=== PATIENT | male | born 1955 | race African-American/Black ===

== ENCOUNTER 2024-04-23 14:51 | Outpatient (OUT) | payer MEDICARE, SELFPAY ==
[2024-04-23 15:22] LABS: Hematocrit 41.7 % (42.0-54.0); Hemoglobin 13.5 g/dL (14.0-18.0); Mean Corpuscular HGB Conc 32.4 g/dL (29.9-35.2); Mean Corpuscular Hemoglobin 28.1 pg (25.9-34.0); Mean Corpuscular Volume 86.9 fL (80.0-94.0); Mean Platelet Volume 9.4 fL (9.5-13.5); Platelet Count 226 10^3/uL (150-450); Red Cell Distribution Width 14.5 % (11.0-15.0); White Blood Count 3.8 10^3/uL (4.0-11.0)
[2024-04-23 15:26] LABS: Creatinine Urine Random 147.02 mg/dL (20.00-300.00); Protein Creatinine Ratio Urine 0.29; Total Protein Urine Random 42.6 mg/dL (<=11.9)
[2024-04-23 15:31] LABS: Bilirubin Urine NEGATIVE (NEGATIVE); Blood Urine NEGATIVE (NEGATIVE); Clarity Urine CLEAR (CLEAR); Color Urine YELLOW (YELLOW); Glucose Urine UA NEGATIVE (NEGATIVE); Ketones Urine NEGATIVE (NEGATIVE); Leukocyte Esterase Urine NEGATIVE (NEGATIVE); Nitrite Urine NEGATIVE (NEGATIVE); Protein Urine 30 mg/dL (NEG/TRACE); Urobilinogen Urine 0.2 EU/dL (0.2-1.0)
[2024-04-23 15:45] LABS: RBC Urine NONE SEEN #/HPF (0-2); WBC Urine NONE SEEN #/HPF (NONE SEEN)
[2024-04-23 15:46] LABS: Bacteria Urine TRACE #/HPF (NONE SEEN); Cast Seen? SEEN #/LPF (NONE SEEN); Crystals Seen? None Seen #/HPF (None Seen); Hyaline Casts Urine RARE; Mucus Urine NONE SEEN (NONE SEEN); Squamous Epithelial Cell Urine FEW #/LPF (NONE/RARE); Urine Culture Indicated NO
[2024-04-23 16:11] LABS: Anion Gap 7.8; BUN Creatinine Ratio 11.6; Calcium 8.5 mg/dL (8.5-10.1); Carbon Dioxide 29.8 mmol/L (21.0-32.0); Chloride 104 mmol/L (98-107); Estimated GFR (African America 37 (>=60); Estimated GFR (Non-African Ame 31 (>=60); Glucose 98 mg/dL (74-106); Magnesium 1.7 mg/dL (1.8-2.4); Phosphorus 3.4 mg/dL (2.6-4.7); Potassium 4.6 mmol/L (3.5-5.1); Sodium 137 mmol/L (136-145); Uric Acid 8.5 mg/dL (3.5-7.2)
[2024-04-24 10:13] LABS: PTH, Intact 136 pg/mL (15-65)
== END 2024-04-23 14:52 | disposition home or self-care (01) ==
LOC: LAB 14:57
PROVIDERS: Family Provider Family Medicine; Visit Provider Internal Medicine
DX: N18.9 Chronic kidney disease, unspecified (principal); D63.1 Anemia in chronic kidney disease; E79.0 Hyperuricemia without signs of inflammatory arthritis and tophaceous disease; N18.30 Chronic kidney disease, stage 3 unspecified; N40.0 Benign prostatic hyperplasia without lower urinary tract symptoms; E78.5 Hyperlipidemia, unspecified
CPT/HCPCS: 36415; 80069; 81001; 82306; 82570; 83735; 83970; 84156; 84550; 85027

== ENCOUNTER 2024-04-25 07:45 | Outpatient (RCR) | payer MEDICARE, SELFPAY ==
[2024-04-25 11:35] LABS: Lactate Dehydrogenase 249 U/L (85-227)
[2024-04-26 15:10] LABS: Albumin 3.5 g/dL (2.9-4.4); Alpha-1-Globulin 0.2 g/dL (0.0-0.4); Alpha-2-Globulin 0.5 g/dL (0.4-1.0); Free Kappa Lt Chains,S 101.2 mg/L (3.3-19.4); Free Lambda Lt Chains,S 22.8 mg/L (5.7-26.3); Gamma Globulin 1.8 g/dL (0.4-1.8); Immunoglobulin A, Qn, Serum 552 mg/dL (61-437); Immunoglobulin G, Qn, Serum 1899 mg/dL (603-1613); Immunoglobulin M, Qn, Serum 31 mg/dL (20-172); Kappa/Lambda Ratio,S 4.44 (0.26-1.65); Protein, Total 7.2 g/dL (6.0-8.5)
[2024-05-01 12:10] LABS: Immunoglobulin E, Total 820 IU/mL (6-495)
== END 2024-05-13 23:59 | disposition home or self-care (01) ==
LOC: HEMC 07:45
PROVIDERS: Family Provider Family Medicine; Visit Provider Internal Medicine Hematology & Oncology
DX: D47.2 Monoclonal gammopathy (principal); R76.8 Other specified abnormal immunological findings in serum; D63.1 Anemia in chronic kidney disease; D50.9 Iron deficiency anemia, unspecified
CPT/HCPCS: 36415; 82784; 82785; 83521; 83615; 84155; 84165

== ENCOUNTER 2024-05-17 08:48 | Outpatient (OUT) | payer MEDICARE, SELFPAY ==
--- NOTE | 2024-05-17 09:01 | XR_ITS ---
[address] [address] Patient Name: HUMERA BUSTILLOS MRN: [id number] date: 1955 Sex: M Assigned Patient Location: [facility] Current Patient Location: Accession/Order Number: [id number] Exam Date: 05/17/2024 09:05 Report Date: 05/19/2024 06:41 At the request of: JESUS PURI Procedure: XR bone survey EXAMINATION: XR bone survey HISTORY: Monoclonal Gammopathy COMPARISON: No relevant comparison available. TECHNIQUE: Two lateral projections of the skull. A lateral projection of the C-spine, T-spine and L-spine. Single view of the chest and pelvis. Single view of each humerus, forearm, femur, and tibia-fibula. FINDINGS: SKULL: No lytic lesion, periosteal reaction/thickening, fracture, or dislocation. C-SPINE: No lytic lesion, periosteal reaction/thickening, fracture, or dislocation. T-SPINE: No lytic lesion, periosteal reaction/thickening, fracture, or dislocation. L-SPINE: No lytic lesion, periosteal reaction/thickening, fracture, or dislocation. CHEST: No expansile lesion, lytic lesion, or fracture. PELVIS: No lytic lesion, periosteal reaction/thickening, fracture, or dislocation. R HUMERUS: No lytic lesion, periosteal reaction/thickening, fracture, or dislocation. R FOREARM: No lytic lesion, periosteal reaction/thickening, fracture, or dislocation. L HUMERUS: No lytic lesion, periosteal reaction/thickening, fracture, or dislocation. L FOREARM: No lytic lesion, periosteal reaction/thickening, fracture, or dislocation. R FEMUR: No lytic lesion, periosteal reaction/thickening, fracture, or dislocation. R TIB/FIB: No lytic lesion, periosteal reaction/thickening, fracture, or dislocation. L FEMUR: No lytic lesion, periosteal reaction/thickening, fracture, or dislocation. L TIB/FIB: No lytic lesion, periosteal reaction/thickening, fracture, or dislocation. SOFT TISSUES: No swelling, nodules, visible mass, or radiopaque foreign body. XR/XR bone survey IMPRESSION: 1. No appreciable bone lesions. 2. Moderate-marked degenerative changes of the shoulders and hip joints bilaterally. 3. Multifocal mild degenerative joint disease. 4. Minimal degenerative changes of the thoracic and lumbar spine. Electronically authenticated by: SAUL CARMONA Date: 05/19/2024 06:41
--- OUTSIDE RECORDS SUMMARY | 2024-05-17 09:08 | XMS_ITS | CCD ---
Author Organization [facility] Care Team Providers Care 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 Name Role Phone BÁRBARA Yanez-C Mayra Primary Care Provider MD Roseann Ceja Attending Provider Delfina, Roseann Unavailable Delfina, Roseann Attending Unavailable Delfina, Roseann Admitting Unavailable Mayra Yanez Primary Care Unavailable Leonela Carvalho MD Primary Care Provider Mayra Yanez NP Unavailable Felicitas MIX, Fiordaliza Shahid Unavailable Leonela Carvalho MD Primary Care Provider JEISON FALK Attending Unavailable LEONELA CARVALHO Referring Unavailable LEONELA CARVALHO Primary Care Unavailable DELFINA, ROSEANN Referring Unavailable LEONELA CARVALHO Primary Care Unavailable LEONELA CARVALHO Primary Care Unavailable IGGY PATELIN Attending Unavailable SAE MILLIGAN Consulting Unavailable SHERYL, MUHAMFAM M Admitting Unavailable CONSUELO, EHAD Consulting Unavailable INPATIENT, TELENEUROLOGY Consulting Unavail able IGGY PATELIN Attending Unavailable IGGY PATELIN Referring Unavailable LEONELA CARVALHO Primary Care Unavailable POLLOCK, HARSHA Attending Unavailable JORGE, HARSHA Referring Unavailable LEONELA CARVALHO Primary Care Unavailable DELFINA, ROSEANN Referring Unavailable LEONELA CARVALHO Primary Care Unavailable MAYRA YANEZ Attending Unavailab MAYRA Quintanilla Attending Unavailab CLAUDINE Delgado Attending Unavailab le Allergies Allergy Classification Reported Allergen(s) Allergy Type Date of Onset Reaction(s) Facility (5 sources) hydroCHLOROthiazide; Translations: [HYDROCHLOROTHIAZIDE] Drug Allergy 08-24-19 21 hypokalemia [facility] (1 source) hydroCHLOROthiazide Drug Allergy 09-04-19 24 [facility] (1 source) hydroCHLOROthiazide Drug Allergy 08-24-19 21 Unknown [facility] Medications Current Medications Medication Drug Class(es) Dates Sig (Normalized) Sig (Original) [id number] actuat albuterol 0.09 mg/actuat metered dose inhaler (5 sources) beta2-Adrenergic Agonist Start: 05-01-2023 take 2 puff(s) by inhalation every four hours for wheezing albuterol HFA 90 mcg/act inhaler Indications: COVID-19 Inhale 2 puffs every 4 (four) hours if needed for wheezing. 18 g 1 05/01/2023 Active Start: 09-30-2019 take 2 puff(s) by in halation every four hours as needed for wheezing albuterol (PROVENTIL HFA;VENTOLIN HFA) 90 mcg/actuation inhaler Inhale 2 puffs every 4 (four) hours as needed for wheezing. 1 Inhaler 0 09/30/2019 Active take 2 puff(s) by in halation every four hours as needed Albuterol Sulfate HFA 108 (90 Base) MCG/ACT 2 puff as needed Inhalation every 4 hrs Active amLODIPine 10 mg oral tablet (1 source) Dihydropyridine Calcium Channel Sirisha take 1 tablet by mouth once daily amLODIPine (Norvasc) 10 MG tablet TAKE 1 TABLET BY MOUTH EVERY DAY for 90 days 0 Active apixaban 5 mg oral tablet (5 sources) Factor Xa Inhibitor Start: 023 take 1 tablet by mouth in the morning, then take 1 tablet by mouth at bedtime apixaban (ELIQUIS) 5 mg tablet Take 1 tablet (5 mg total) by mouth in the morning and 1 tablet (5 mg total) before bedtime. 180 tablet 3 01/03/2023 Active atorvastatin 10 mg oral tablet (1 source) HMG-CoA Reductase Inhibitor Start: 023 take 1 tablet by mouth in the morning atorvastatin (Lipitor) 10 MG tablet Indications: Mixed hyperlipidemia (CMS/HCC) Take 1 tablet (10 mg) by mouth in the morning. 90 tablet 1 08/03/2023 Active carvedilol 25 mg oral tablet (5 sources) alpha-Adrenergic Sirisha, beta-Adrenergic Sirisha Start: 023 take 2 tablets by mouth in the morning, then take 2 tablets by mouth at bedtime carvediloL (COREG) 25 mg tablet Indications: Essential hypertension Take 2 tablets (50 mg total) by mouth in the morning and 2 tablets (50 mg total) before bedtime. 360 tablet 3 07/25/2023 Active take 1 tablet by mouth in the mo [facility] carvedilol (Coreg) 25 MG tablet Take 1 tablet by mouth in the morning and 1 tablet before bedtime. 0 Active cloNIDine hydrochloride 0.3 mg oral tablet (5 sources) Central alpha-2 Adrenergic Agonist take 0.2 mg by mouth once daily cloNIDine (CATAPRES) 0.3 mg tablet Take 0.2 mg by mouth nightly. 0 Active cloNIDine (Catap res) 0.3 MG tablet every 12 (twelve) hours. 0 Active take 1 tablet by [facility] every twenty-four hours cloNIDine HCl 0.2 MG 1 tablet Orally Onc e a day Active 24 hr dilTIAZem hydrochloride 180 mg extended release oral capsule (4 sources) Calcium Channel Sirisha Start: 08-01-2023 take 1 capsule by mouth every twenty-four hours in the morning dilTIAZem CD (CARDIZEM CD) 180 mg 24 hr capsule Take 1 capsule (180 mg total) by mouth in the morning. 30 capsule 10 08/01/2023 Active take 1 capsule by [facility] every twenty-four hours dilTIAZem HCl ER Beads 180 MG 1 capsule Orally Once a day Active dilTIAZem HCl Coated Beads (DILTIAZEM CD PO) (1 source) dilTIAZem HCl Co ated Beads (DILTIAZEM CD PO) Diltiazem CD 0 Active finasteride 5 mg oral tablet (6 sources) 5-alpha Reductase Inhibitor Start: 4 take 1 tablet by mouth in the morning finasteride (PROSCAR) 5 mg tablet Take 1 tablet (5 mg total) by mouth in the morning. 90 tablet 0 11/03/2023 Active Start: 02-06-2023 End: 11-01-2023 take 1 tablet by mouth in the morning finasteride (PROSCAR) 5 mg tablet Take 1 tablet (5 mg total) by mouth in the morning. 90 tablet 3 02/06/2023 11/01/2023 Discontinued (Reorder) furosemide 20 mg oral tablet (5 sources) Loop Diuretic Start: 03-13-2023 take 1 tablet by mouth once daily furosemide (Lasix) 20 MG tablet Indications: Other heart failure (CMS/HCC) TAKE 1 TABLET BY MOUTH EVERY DAY 90 tablet 0 03/13/2023 Active Start: 01-03-2023 take 1 tablet by ankit once daily furosemide (LASIX) 40 mg tablet Take 1 tablet (40 mg total) by mouth daily. 0 01/03/2023 Active take 2 tablets by mo [facility] every twenty-four hours Furosemide 40 MG 2 tablet Orally Once a day Active hydrALAZINE hydrochloride 100 mg oral tablet (5 sources) Arteriolar Vasodilator Start: 09-25-2022 take 1 tablet by mouth every eight hours hydrALAZINE (APRESOLINE) 100 mg tablet Take 1 tablet (100 mg total) by mouth every 8 (eight) hours. 90 tablet 2 09/25/2022 Active Start: 09-25-2022 hydrALAZINE (A presoline) 100 MG tablet Take 100 mg by mouth in the morning and 100 mg at noon and 100 mg in the evening. 0 09/25/2022 Active levalbuterol 0.103 mg/ml inhalation solution (4 sources) beta2-Adrenergic Agonist Start: 01-21-2021 levalbuterol (XOPENEX) 0.31 mg/3 mL nebulizer solution Indications: Mild intermittent asthma with exacerbation Inhale 3 mL (0.31 mg total) by nebulization every 4 (four) hours as needed for wheezing for up to 24 doses. 3 mL 0 01/21/2021 Active loratadine 10 mg oral tablet (5 sources) Start: 01-09-2017 loratadine (CLARITIN) 10 mg tablet 10 mg daily for 14 days then as needed for nasal congestion drainage in sneezing 30 tablet 0 01/09/2017 Active omeprazole 20 mg delayed release oral capsule (5 sources) Proton Pump Inhibitor take 1 capsule by mouth in the morning omeprazole (PriLOSEC) 20 mg capsule Take 1 capsule (20 mg total) by mouth in the morning. 0 Active omeprazole OTC ( PriLOSEC OTC) 20 MG EC tablet 1 (one) time each day at the same time. 0 Active microencapsulated potassium chloride 20 meq extended release oral tablet (5 sources) Start: 07-31-2023 take 2 tablets by mouth once daily at mealtime potassium chloride CR (Klor-Con M20) 20 MEQ ER tablet Indications: Hypokalemia TAKE 2 TABLETS BY MOUTH EVERY DAY WITH FOOD 180 tablet 3 07/31/2023 Active Start: 09-22-2022 take 1 tablet by ankit th in the morning potassium chloride (KLOR-CON M 20) 20 MEQ CR tablet Take 1 tablet (20 mEq total) by mouth in the morning and 1 tablet (20 mEq total) before bedtime. 0 09/22/2022 Active take 1 tablet by ankit th every twelve hours Potassium Chloride ER 20 MEQ 1 tablet with food Orally Twice a day Active spironolactone 25 mg oral tablet (5 sources) Aldosterone Antagonist Start: 09-26-2022 take 1 tablet by mouth once daily spironolactone (ALDACTONE) 25 mg tablet Indications: Chronic systolic heart failure (CMS-HCC) , Essential hypertension , NICM (nonischemic cardiomyopathy) (CMS-HCC) Take 1 tablet (25 mg total) by mouth once daily. 30 tablet 2 09/26/2022 Active tamsulosin hydrochloride 0.4 mg oral capsule (5 sources) alpha-Adrenergic Sirisha Start: 02-06-2023 take 2 capsules by mouth once daily tamsulosin (FLOMAX) 0.4 mg capsule Take 2 capsules (0.8 mg total) by mouth nightly. 180 capsule 3 02/06/2023 Active Problems Active Problems Problem Classification Problem Date Documented Date Episodic/Chronic Acute cerebrovascular disease (1 source) Acute cerebrovascular disease Onset: 4 Asthma (1 source) Exacerbation of severe persistent asthma; Translations: [Severe persistent asthma with (acute) exacerbation] Onset: 3 12-13-2022 Chronic Cardiac dysrhythmias (8 sources) Atrial fibrillation; Translations: [Unspecified atrial fibrillation] Onset: 0 12-13-2022 Chronic Chronic kidney disease (6 sources) Chronic kidney disease stage 4; Translations: [Chronic kidney disease, stage 4 (severe)] Onset: 3 Chronic Chronic kidney disease (2 sources) Chronic kidney disease; Translations: [Hypertensive chronic kidney disease with stage 1 through stage 4 chronic kidney disease, or unspecified chronic kidney disease] Onset: 4 Congestive heart failure; nonhypertensive (9 sources) Heart failure; Translations: [Other heart failure] Onset: 1 Resolved: 3 12-13-2022 Chronic Deficiency and other anemia (1 source) Anemia in chronic kidney disease; Translations: [Anemia in chronic kidney disease] Onset: 4 Chronic Disorders of lipid metabolism (4 sources) Dyslipidemia; Translations: [Hyperlipidemia, unspecified] Onset: 4 Chronic Essential hypertension (6 sources) Benign essential hypertension; Translations: [Essential (primary) hypertension] Onset: 0 12-13-2022 Chronic Fluid and electrolyte disorders (4 sources) Hypokalemia; Translations: [Hypokalemia] Onset: 3 Resolved: 3 09-25-2022 Episodic Hyperplasia of prostate (8 sources) Benign prostatic hypertrophy without outflow obstruction; Translations: [Benign prostatic hyperplasia without lower urinary tract symptoms] Onset: 1 Chronic Hypertension with complications and secondary hypertension (3 sources) Chronic kidney disease due to hypertension; Translations: [Hypertensive chronic kidney disease with stage 1 through stage 4 chronic kidney disease, or unspecified chronic kidney disease] Onset: 4 Chronic Other diseases of kidney and ureters (1 source) Secondary hyperparathyroidism; Translations: [Secondary hyperparathyroidism of renal origin] Chronic Other diseases of kidney and ureters (3 sources) Secondary hyperparathyroidism of renal origin; Translations: [Secondary hyperparathyroidism of renal origin] Onset: 4 Chronic Other nervous system disorders (1 source) Anesthesia of skin; Translations: [Anesthesia of skin] Onset: 4 Episodic Other nervous system disorders (1 source) Paresthesia of skin; Translations: [Paresthesia of skin] Onset: 4 Episodic Other nervous system disorders (1 source) Numbness Onset: 4 Episodic Other nutritional; endocrine; and metabolic disorders (1 source) Body mass index 30+ - obesity; Translations: [Obesity, unspecified] Onset: 3 12-13-2022 Chronic Other nutritional; endocrine; and metabolic disorders (7 sources) Severe obesity; Translations: [Morbid (severe) obesity due to excess calories] Onset: 1 Resolved: 4 01-03-2023 Chronic Other nutritional; endocrine; and metabolic disorders (1 source) Morbid (severe) obesity due to excess calories; Translations: [Morbid (severe) obesity due to excess calories] Onset: 3 Chronic Other nutritional; endocrine; and metabolic disorders (1 source) Body mass index (BMI) 45.0-49.9, adult; Translations: [Body mass index (BMI) 45.0-49.9, adult] Onset: 3 Chronic Other nutritional; endocrine; and metabolic disorders (1 source) Hyperuricemia without signs of inflammatory arthritis and tophaceous disease; Translations: [Hyperuricemia without signs of inflammatory arthritis and tophaceous disease] Onset: 4 Episodic Anni-; endo-; and myocarditis; cardiomyopathy (except that caused by tuberculosis or sexually transmitted disease) (6 sources) Cardiomyopathy; Translations: [Cardiomyopathy, unspecified] Onset: 7 12-13-2022 Chronic Residual codes; unclassified (5 sources) Obstructive sleep apnea syndrome; Translations: [Obstructive sleep apnea (adult) (pediatric)] Onset: 8 12-13-2022 Chronic Residual codes; unclassified (1 source) Insomnia; Translations: [Other insomnia] Onset: 3 12-13-2022 Chronic Residual codes; unclassified (1 source) Obstructive sleep apnea (adult) (pediatric); Translations: [Obstructive sleep apnea (adult) (pediatric)] Onset: 3 Chronic Unclassified (1 source) numbness right side Onset: 4 Unclassified (1 source) Longstanding persistent atrial fibrillation; Translations: [Longstanding persistent atrial fibrillation] Onset: 3 Past or Other Problems Problem Classification Problem Date Documented Date Episodic/Chronic Acute and unspecified renal failure (3 sources) Acute renal failure syndrome; Translations: [Acute kidney failure, unspecified] Onset: 09-22-2022 09-25-2022 Episodic Mood disorders (1 source) Mood disorders Onset: 07-20-2023 07-20-2023 Other diseases of veins and lymphatics (4 sources) Stasis dermatitis; Translations: [Venous insufficiency (chronic) (peripheral)] Onset: 04-12-2021 01-03-2023 Episodic Other diseases of veins and lymphatics (1 source) Venous insufficiency (chronic) (peripheral); Translations: [Venous insufficiency (chronic) (peripheral)] Onset: 01-03-2023 Episodic Other lower respiratory disease (3 sources) Dyspnea on exertion; Translations: [Other forms of dyspnea] Resolved: 10-19-2023 08-02-2017 Episodic Other lower respiratory disease (3 sources) Dyspnea; Translations: [Shortness of breath] Resolved: 02-19-2021 02-19-2021 Episodic Other nutritional; endocrine; and metabolic disorders (3 sources) Hypomagnesemia; Translations: [Hypomagnesemia] Onset: 09-23-2022 Resolved: 09-25-2022 09-25-2022 Chronic Other screening for suspected conditions (not mental disorders or infectious disease) (3 sources) D-dimer above reference range; Translations: [Other specified abnormal findings of blood chemistry] Onset: 09-22-2022 09-25-2022 Episodic Results Test Name Value Interpretation Reference Range Facility COMPLETE BLOOD COUNTon 01-21 Erythrocyte distribution width (RBC) [Ratio] 16.1 % High 11.5-15.0 [facility] Comment on above: Performed By: #### Dwayne MALAGON, 78993-7, 3084-1, 2731-8, 80018-2, CBC, UPCR #### [facility] ([id number]) [address], [address] [place] [address] Hematocrit (Bld) [Volume fraction] 41.7 % Normal 39-49 [facility] Comment on above: Performed By: #### Dwayne MALAGON, 37230-1, 3084-1, 2731-8, 01782-0, CBC, UPCR #### [facility] ([id number]) [address], [address] [place] [address] Hemoglobin (Bld) [Mass/Vol] 13.9 g/dL Normal 13.0-17.0 [facility] Comment on above: Performed By: #### Dwayne MALAGON 06738-3, 3084-1, 2731-8, 19244-6, CBC, UPCR #### [facility] ([id number]) [address], [facility] [address] [place] [address] MCH (RBC) [Entitic mass] 28.9 pg Normal 27-34 [facility] Comment on above: Performed By: #### Dwayne MALAGON, , 3083-1, 2731-8, 52578-4, CBC, UPCR #### [facility] ([id number]) [address], [facility] [address] [place] [address] MCHC (RBC) [Mass/Vol] 33.3 g/dL Normal 32-36 [facility] Comment on above: Performed By: #### Dwayne MALAGON, , 3083-1, 2731-8, 49138-9, CBC, UPCR #### [facility] ([id number]) [address], [facility] [address] [place] [address] MCV (RBC) [Entitic vol] 87 fL Normal 80-100 [facility] Comment on above: Performed By: #### Dwayne MALAGON, , 3083-, 2731-8, 79287-3, CBC, UPCR #### [facility] ([id number]) [address], [facility] [address] [place] [address] Platelet mean volume (Bld) [Entitic vol] 8.8 fL Normal 7-12 [facility] Comment on above: Performed By: #### Dwayne MALAGON, , 3083-1, 2731-8, 07655-2, CBC, UPCR #### [facility] ([id number]) [address], [facility] [address] [place] [address] Platelets (Bld) [#/Vol] 253 10*3/uL Normal 150-450 [facility] Comment on above: Performed By: #### Dwayne MALAGON, 42745-5, 3084-1, 2731-8, 18043-5, CBC, UPCR #### [facility] ([id number]) [address] [place] [address] RBC COUNT 4.80 X10E12/L Normal 4.10-5.70 [facility] Comment on above: Performed By: #### R ENAL, 80159-7, 3084-1, 2731-8, 77302-5, CBC, UPCR #### [facility] ([id number]) [address] [place] [address] WBC (Bld) [#/Vol] 3.8 10*3/uL Low 4.0-11.0 [facility] Comment on above: Performed By: #### R ENAL, 34452-1, 3084-1, 2731-8, 81910-9, CBC, UPCR #### [facility] ([id number]) [address] [place] [address] Clinical Pathologyon 024 Clinical Pathology Normal [facility] Comment on above: Result Comment: [facility] [address] [place] [address] Clinical Pathology Report Patient Name:HILLARY ALEXANDERISDOB:1955 (Age: 68)Gender:MTaken:4Reported:01/23/2024hysician(s):Roseann Ceja MD ([phone])Copy To: Rec. #:[id number]: #[id number] Final Pathologic Diagnosis Polyclonal pattern, no monoclonal bands. Elevated free kappa and lambda light chains suggestive of renal impairment. Report Electronically Signed Out sps/01/23/2024Suwallace Muhammad MD Interpret[place] [address], License number: [id number]. Clinical History N18.4, N18.9, D63.1. SERUM IEP SAMPLE NUMBER: [id number] IMMUNOGLOBULIN LEVELS (mg/dL): IgG : 1860 IgA : 512 IgM : 31 Free [place]: 11.65 Free Lambda: 2.51 Free [place]/Lambda ratio: 4.64 Specimen(s) Received Serum IEP Fee Codes(s): 1; 40114-65 FERRITINon 01-22-2024 Ferritin [Mass/Vol] 24 ng/mL Normal 24-336 [facility] Comment on above: Performed By: #### Dwayne MALAGON, 72988-0, 3084-1, 2731-8, 84705-3, CBC, UPCR #### [facility] ([id number]) [address], [address] [place] [address] FREE LIGHT CHAINSon 01-22-20 FREE CLAU/LAMBD RATIO 4.64 High 0.26-1.65 [facility] Comment on above: Performed By: #### Dwayne MALAGON, 90629-1, 4-1, 2731-8, 15476-0, CBC, UPCR #### [facility] ([id number]) [address], [address] [place] [address] FREE KAPPA LT CHAINS 11.65 mg/dL High 0.33-1.94 [facility] Comment on above: Performed By: #### Dwayne MALAGON, 53357-9, 4-1, 2731-8, 32201-7, CBC, UPCR #### [facility] ([id number]) [address], [address] [place] [address] FREE LAMBDA LT CHAINS 2.51 mg/dL Normal 0.57-2.63 [facility] Comment on above: Performed By: #### Dwayne MALAGON, 32567-3, 3084-1, 2731-8, 15177-8, CBC, UPCR #### [facility] ([id number]) [address], [address] [place] [address] Folate [Mass/Vol]on 01-22-20 24 FOLIC ACID 8.9 ng/mL Normal >5.8 [facility] Comment on above: Result Comment: NEW REFERENCE RANGE Performed By: #### Dwayne MALAGON, 70038-3, 3084-1, 2731-8, 50183-9, CBC, UPCR #### [facility] ([id number]) [address] [place] [address] IMMUNO FIX FREE LIGHT CHAINS , 24 HR URINEon 01-22-2024 FREE URINARY KAPPA EXCRETION/DAY SEE NOTE Normal [facility] Comment on above: Result Comment: NOTE Unable to quantitate free light chain excretion per day on a random urine sample. Performed By: #### Dwayne MALAGON, 59786-9, 3084-1, 2731-8, 83338-8, CBC, UPCR #### [facility] ([id number]) [address] [facility] [place] [address] FREE URINARY KAPPA LIGHT CHAINS 96.12 mg/L High 0.00-32.90 [facility] Comment on above: Result Comment: NOTE INTERPRETIVE INFORMATION: Free Urinary [place] Light Chains Undetected antigen excess is a rare event but cannot be excluded. Free light chain results should always be interpreted in conjunction with other clinical and laboratory findings. Performed By: #### Dwayne MALAGON, 13073-3, 3084-1, 2731-8, 20713-2, CBC, UPCR #### [facility] ([id number]) [address] [facility] [place] [address] FREE URINARY LAMBDA EXCRETION/DAY SEE NOTE Normal [facility] Comment on above: Result Comment: NOTE Unable to quantitate free light chain excretion per day on a random urine sample. Performed By: [employer] [address] [place] [address] Yacht Rigger: Dangelo Aggarwal MD, PhD CLIA Number: [id number] Performed By: #### Dwayne MALAGON, 92895-9, 3084-1, 2731-8, 18190-3, CBC, UPCR #### [facility] ([id number]) [address], [address] [place] [address] FREE URINARY LAMBDA LIGHT CHAINS 12.73 mg/L High 0.00-3.79 [facility] Comment on above: Result Comment: NOTE INTERPRETIVE INFORMATION: Free Urinary Lambda Light Chain Undetected antigen excess is a rare event but cannot be excluded. Free light chain results should always be interpreted in conjunction with other clinical and laboratory findings. Performed By: #### Dwayne MALAGON, 73098-8, 3084-1, 2731-8, 84286-4, CBC, UPCR #### [facility] ([id number]) [address], [address] [place] [address] HOURS COLLECTED RANDOM Normal [facility] Comment on above: Performed By: #### Dwayne MALAGON, 26002-4, 3084-1, 2731-8, 43243-2, CBC, UPCR #### [facility] ([id number]) [address] [facility] [facility] [address] [place] [address] SUSAN INTERPRETATION SEE NOTE Normal [facility] Comment on above: Result Comment: NOTE Urine is negative for monoclonal Free Light Chains (Bence Stevens Protein). INTERPRETIVE INFORMATION: SUSAN with Free Light Chains, Quant, Urine Results of urine free light chain testing can be used to monitor disease progression or response to therapy in patients for whom urine electrophoresis is unable to provide reliable Bence Stevens Protein quantification. The results of urine kappa and lambda free light chain quantitative values may be misleading in specimens with high levels of urinary polyclonal free light chains, and absent Bence Stevens protein by immunofixation; therefore correlation with urine immunofixation is required to identify inconsistent results. Performed By: #### R MANAS, 87526-6, 3084-1, 2731-8, 86178-6, CBC, UPCR #### [facility] ([id number]) [address], [address] [place] [address] TOT VOLUME-24H URINE RANDOM Normal [facility] Comment on above: Performed By: #### Dwayne MALAGON, 76953-8, 3084-1, 2731-8, 39228-9, CBC, UPCR #### [facility] ([id number]) [address] [address] [address] TOTAL PROTEIN SEE NOTE Normal <=150 [facility] Comment on above: Result Comment: NOTE Total Protein = 389.85 mg/L based on random urine. Reference intervals not applicable for random urines. INTERPRETIVE INFORMATION: Total Protein Total urinary protein is determined turbidimetrically by adding the albumin and kappa and/or lambda light chains. This value may not agree with the total protein as determined by chemical methods, which characteristically underestimate urinary light chains. Performed By: #### Dwayne MALAGON, 52050-6, 3084-1, 2731-8, 69714-4, CBC, UPCR #### [facility] ([id number]) [address] [address] IRON PROFILEon 01-22-2024 Iron [Mass/Vol] 80 ug/dL Normal 50-212 [facility] Comment on above: Performed By: #### Dwayne MALAGON, 91621-7, 3084-1, 2731-8, 63276-0, CBC, UPCR #### [facility] ([id number]) [address] [address] IRON BINDING 340 ug/dL Normal 250-425 [facility] Comment on above: Performed By: #### Dwayne MALAGON, 90965-3, 3084-1, 2731-8, 76507-2, CBC, UPCR #### [facility] ([id number]) [address] [address] [place] [address] IRON SATURATION 24 % SATURATION Normal 20-50 [facility] Comment on above: Performed By: #### Dwayne MALAGON, 41852-6, 3084-1, 2731-8, 72649-1, CBC, UPCR #### [facility] ([id number]) [address] [address] [place] [address] Laboratory comment Brandt (Repo rt)on 01-22-2024 UNLISTED LAB TEST Sent to reference lab Normal [facility] Comment on above: Performed By: #### Dwayne MALAGON, 03348-5, 3083-1, 2731-8, 47568-1, CBC, UPCR #### [facility] ([id number]) [address] [place] [address] MAGNESIUMon 01-22-2024 Magnesium [Mass/Vol] 1.8 mg/dL Normal 1.8-2.6 [facility] Comment on above: Performed By: #### Dwayne MALAGON, , 3083-1, 273-8, 39902-1, CBC, UPCR #### [facility] ([id number]) [address] [place] [address] PROTEIN CREAT RATIOon 2023 RANDOM URINE PROTEIN 530 mg/L High <120 [facility] Comment on above: Performed By: #### Dwayne MALAGON, , 3083-, 2730-8, 80052-9, CBC, UPCR #### [facility] ([id number]) [address] [place] [address] U/PRO/ASTRONAUT MISSION SPECIALIST RATIO CALC 0.28 High <0.2 [facility] Comment on above: Result Comment: Neph rotic Syndrome is associated with ratios >3.5 Performed By: #### Dwayne MALAGON, , 3083-, 2730-8, 19558-4, CBC, UPCR #### [facility] ([id number]) [address] [place] [address] URINE CREATININE,RDM 189.30 mg/dL Normal [facility] Comment on above: Performed By: #### Dwayne MALAGON, 98818-8, 3083-1, 2731-8, 41668-6, CBC, UPCR #### [facility] ([id number]) [address] [place] [address] Parathyrin.intact [Mass/Vol] on 01-22-2024 PTH INTACT 201 pg/mL High 12-88 [facility] Comment on above: Performed By: #### Dwayne MALAGON, 97130-5, 3084-1, 2731-8, 65542-9, CBC, UPCR #### [facility] ([id number]) [address] [place] [address] RENAL PANELon 01-22-2024 Albumin [Mass/Vol] 3.8 g/dL Normal 3.2-5.3 [facility] Comment on above: Performed By: #### Dwayne MALAGON, 67834-3, 4-1, 2731-8, 23497-3, CBC, UPCR #### [facility] ([id number]) [address] [place] [address] Anion gap [Moles/Vol] 8 mmol/L Normal 5-15 [facility] Comment on above: Performed By: #### Dwayne MALAGON, , 3084-1, 2731-8, 77049-3, CBC, UPCR #### [facility] ([id number]) [address] [place] [address] Calcium [Mass/Vol] 9.1 mg/dL Normal 8.5-10.5 [facility] Comment on above: Performed By: #### Dwayne MALAGON, 20799-1, 4-1, 2731-8, 25059-2, CBC, UPCR #### [facility] ([id number]) [address] [place] [address] Chloride [Moles/Vol] 103 mmol/L Normal 98-109 [facility] Comment on above: Performed By: #### Dwayne MALAGON, 76730-3, 3084-1, 2731-8, 14444-2, CBC, UPCR #### [facility] ([id number]) [address] [place] [address] CO2 [Moles/Vol] 27 mmol/L Normal 22-32 [facility] Comment on above: Performed By: #### Dwayne MALAGON, , 3083-, 273-8, 30705-3, CBC, UPCR #### [facility] ([id number]) [address] [place] [address] Creatinine [Mass/Vol] 2.28 mg/dL High 0.60-1.30 [facility] Comment on above: Result Comment: METH OD TRACEABLE TO IDMS STANDARD Performed By: #### Dwayne MALAGON, , 3083-08, 2730-8, 52154-0, CBC, UPCR #### [facility] ([id number]) [address] [place] [address] GFR/1.73 sq M.predicted among non-blacks MDRD (S/P/Bld) [Vol rate/Area] 31 mL/min/{1.73_m2} Low >59 [facility] Comment on above: Result Comment: Reported eGFR is based on the CKD-EPI 2020 equation that does not use a race coefficient. Performed By: #### Dwayne MALAGON, , 3083-08, 2730-8, 46213-4, CBC, UPCR #### [facility] ([id number]) [address] [place] [address] Glucose [Mass/Vol] 103 mg/dL High 65-99 [facility] Comment on above: Performed By: #### Dwayne MALAGON, , 3083-, 273-8, 28852-3, CBC, UPCR #### [facility] ([id number]) [address] [place] [address] Phosphate [Mass/Vol] 3.4 mg/dL Normal 2.4-4.9 [facility] Comment on above: Performed By: #### Dwayne MALAGON, , 3084-1, 2731-8, 77239-6, CBC, UPCR #### [facility] ([id number]) [address] [place] [address] Potassium [Moles/Vol] 4.9 mmol/L Normal 3.5-5.0 [facility] Comment on above: Performed By: #### Dwayne MALAGON, 66525-9, 3083-1, 2731-8, 19288-8, CBC, UPCR #### [facility] ([id number]) [address], [address] [place] [address] Sodium [Moles/Vol] 138 mmol/L Normal 134-146 [facility] Comment on above: Performed By: #### Dwayne MALAGON, , 3083-1, 1-8, 32572-9, CBC, UPCR #### [facility] ([id number]) [address], [address] [place] [address] Urea nitrogen [Mass/Vol] 29 mg/dL High 5-27 [facility] Comment on above: Performed By: #### Dwayne MALAGON, , 3083-, 2730-8, 62119-2, CBC, UPCR #### [facility] ([id number]) [address] [place] [address] SERUM IMMUNOFIXATIONon 01-21 IgA [Mass/Vol] 512 mg/dL High 68-378 [facility] Comment on above: Performed By: #### Dwayne MALAGON, 02228-0, 3083-1, 2731-8, 98121-0, CBC, UPCR #### [facility] ([id number]) [address] [place] [address] IgG [Mass/Vol] 1860 mg/dL High 635-1741 [facility] Comment on above: Performed By: #### Dwayne MALAGON, 69964-8, 3084-1, 2731-8, 44822-5, CBC, UPCR #### [facility] ([id number]) [address] [place] [address] IgM [Mass/Vol] 31 mg/dL Low 45-281 [facility] Comment on above: Performed By: #### Dwayne MALGAON, 74999-3, 3084-1, 2731-8, 66934-7, CBC, UPCR #### [facility] ([id number]) [address] [place] [address] IMMUNE PROFILE INTERP SEE SEPARATE REPORT Normal [facility] Comment on above: Performed By: #### Dwayne MALAGON, 30618-8, 4-1, 2731-8, 18626-8, CBC, UPCR #### [facility] ([id number]) [address] [place] [address] URIC ACIDon 01-22-2024 Urate [Mass/Vol] 9.1 mg/dL High 2.6-7.2 [facility] Comment on above: Performed By: #### Dwayne MALAGON, 66597-1, 4-1, 2731-8, 95576-5, CBC, UPCR #### [facility] ([id number]) [address] [place] [address] URINALYSISon 01-22-2024 Bilirubin Ql (U) Negative Normal NEG [facility] Comment on above: Performed By: #### Dwayne MALAGON, 18411-0, 3084-1, 2731-8, 98287-6, CBC, UPCR #### [facility] ([id number]) [address] [place] [address] BLOOD/HGB Negative Normal NEG [facility] Comment on above: Performed By: #### Dwayne MALAGON, 00568-9, 3084-1, 2731-8, 67290-9, CBC, UPCR #### [facility] ([id number]) [address] [place] [address] Color (U) YELLOW Normal YELLOW [facility] Comment on above: Performed By: #### Dwayne MALAGON, 25682-0, 3084-1, 2731-8, 26723-3, CBC, UPCR #### [facility] ([id number]) [address] [place] [address] Glucose Ql (U) Negative Normal NEG [facility] Comment on above: Performed By: #### Dwayne MALAGON, 48177-8, 3084-1, 2731-8, 55665-8, CBC, UPCR #### [facility] ([id number]) [address] [place] [address] Hyaline casts LM Ql (Urine sed) 1 /lpf Normal 0-2 [facility] Comment on above: Performed By: #### Dwayne MALAGON, 38377-6, 4-1, 2731-8, 89294-6, CBC, UPCR #### [facility] ([id number]) [address] [place] [address] Ketones Ql (U) Negative Normal NEG [facility] Comment on above: Performed By: #### Dwayne MALAGON, , 4-1, 2731-8, 92346-8, CBC, UPCR #### [facility] ([id number]) [address], [address] [place] [address] Leukocyte esterase Test strip Ql (U) Negative Normal NEG [facility] Comment on above: Performed By: #### Dwayne MALAGON, 81979-5, 3084-1, 2731-8, 31543-3, CBC, UPCR #### [facility] ([id number]) [address] [place] [address] MUCOUS PRESENT Abnormal NONE [facility] Comment on above: Performed By: #### Dwayne MALAGON, 91490-1, 3084-1, 2731-8, 12908-0, CBC, UPCR #### [facility] ([id number]) [address] [place] [address] Nitrite Ql (U) Negative Normal NEG [facility] Comment on above: Performed By: #### Dwayne MALAGON, 41142-9, 4-1, 2731-8, 51012-8, CBC, UPCR #### [facility] ([id number]) [address] [place] [address] pH (U) 6.5 [pH] Normal 5.0-8.5 [facility] Comment on above: Performed By: #### Dwayne MALAGON, 31650-8, 4-1, 1-8, 81748-7, CBC, UPCR #### [facility] ([id number]) [address] [place] [address] Protein Ql (U) 50 mg/dL Abnormal NEG [facility] Comment on above: Performed By: #### Dwayne MALAGON, , 3083-, 2730-8, 84088-0, CBC, UPCR #### [facility] ([id number]) [address], [facility] [address] [place] [address] R.B.CELLS 1 /hpf Normal 0-5 [facility] Comment on above: Performed By: #### Dwayne MALAGON, 74882-7, 3083-1, 2731-8, 29283-0, CBC, UPCR #### [facility] ([id number]) [address], [facility] [address] [place] [address] Specific gravity (U) [Rel density] 1.016 Normal 1.003-1.035 [facility] Comment on above: Performed By: #### Dwayne MALAGON, 14001-8, 4-1, 2731-8, 22796-6, CBC, UPCR #### [facility] ([id number]) [address] [place] [address] TURBIDITY CLEAR Normal CLEAR [facility] Comment on above: Performed By: #### Dwayne MALAGON, 51627-8, 3084-1, 2731-8, 04834-6, CBC, UPCR #### [facility] ([id number]) [address] [place] [address] Urobilinogen (U) [Mass/Vol] mg/dL Normal <1.1 [facility] Comment on above: Performed By: #### Dwayne MALAGON, 48450-3, 3084-1, 2731-8, 74131-1, CBC, UPCR #### [facility] ([id number]) [address] [place] [address] W.B.CELLS 1 /hpf Normal 0-5 [facility] Comment on above: Performed By: #### Dwayne MALAGON, 22306-1, 3084-1, 2731-8, 85175-1, CBC, UPCR #### [facility] ([id number]) [address] [place] [address] VITAMIN B12on 01-22-2024 Cobalamin (Vitamin B12) [Mass/Vol] 194 pg/mL Normal 180-914 [facility] Comment on above: Performed By: #### Dwayne MALAGON, 67850-7, 4-1, 2731-8, 14652-1, CBC, UPCR #### [facility] ([id number]) [address] [place] [address] Vitamin D+Metabolites [Mass/ Vol]on 01-22-2024 VITAMIN D 25 HYD TOT 23.9 ng/mL Low 30-100 [facility] Comment on above: Result Comment: Vitamin D status 25 [place] Vitamin D Deficiency <20 ng/mL Insufficiency 20-29 ng/mL Sufficiency 30-100 ng/mL Toxicity >100 ng/mL NOTE: A pediatric reference range has not been established by the drip pumper of this kit. The [place] [employer] recommends a Vitamin D level of = or >20ng/mL in infants and children. Performed By: #### Dwayne MALAGON, , 4-1, 2731-8, 44592-5, CBC, UPCR #### [facility] ([id number]) [address] [place] [address], [address] [address] B. burgdorferi IgG+IgM Qn (S )on 12-01-2023 LYME TOTAL <0.2 Normal <0.9 [facility] Comment on above: Result Comment: Interpretation-------- <0.9 Negative 0.9 - 1.0 Equivocal >1.0 Positive No serological evidence of Borrelia infection.A non-reactive result does not exclude the possibility of Borrelia infection and cannot exclude early infection with B.burgdorferi. If Lyme borreliosis is suspected, a second sample should be collected and tested 2-4 weeks later. Performed By: #### Dwayne MALAGON, , 4-1, 2731-8, 72322-8, CBC, UPCR #### [facility] ([id number]) [address] [place] [address], [facility] [address] [place] [address] CBC AND AUTO DIFFon 12-01-19 24 ABSOLUTE BASOPHIL 0.0 X10E9/L Normal 0.0-0.2 [facility] Comment on above: Performed By: #### Dwayne MALAGON, , 3084-1, 2731-8, 71852-0, CBC, UPCR #### [facility] ([id number]) [address] [place] [address], [facility] [address] [place] [address] ABSOLUTE NEUTROPHIL 4.0 X10E9/L Normal 1.5-6.6 [facility] Comment on above: Performed By: #### Dwayne MALAGON, 22456-4, 3083-1, 2731-8, 67076-2, CBC, UPCR #### [facility] ([id number]) [address] [place] [address] Basophils/100 WBC (Bld) 0.4 % Normal [facility] Comment on above: Performed By: #### Dwayne MALAGON, , 3083-1, 2730-8, 65835-0, CBC, UPCR #### [facility] ([id number]) [address] [place] [address] Eosinophils (Bld) [#/Vol] 0.3 10*3/uL Normal 0.0-0.4 [facility] Comment on above: Performed By: #### Dwayne MALAGON, , 3083-, 2730-8, 32559-1, CBC, UPCR #### [facility] ([id number]) [address] [place] [address] Eosinophils/100 WBC (Bld) 4.8 % Normal [facility] Comment on above: Performed By: #### Dwayne MALAGON, , 3083-, 2730-8, 15027-2, CBC, UPCR #### [facility] ([id number]) [address], [address] [place] [address] Erythrocyte distribution width (RBC) [Ratio] 15.6 % High 11.5-15.0 [facility] Comment on above: Performed By: #### Dwayne MALAGON, 72935-9, 3083-1, 273-8, 72524-0, CBC, UPCR #### [facility] ([id number]) [address] [place] [address] Hematocrit (Bld) [Volume fraction] 38.3 % Low 39-49 [facility] Comment on above: Performed By: #### Dwayne MALAGON, 31934-5, 3084-1, 2731-8, 31541-8, CBC, UPCR #### [facility] ([id number]) [address] [place] [address] Hemoglobin (Bld) [Mass/Vol] 13.0 g/dL Normal 13.0-17.0 [facility] Comment on above: Performed By: #### Dwayne MALAGON, 82936-1, 3084-1, 2731-8, 41490-6, CBC, UPCR #### [facility] ([id number]) [address], [facility] [address] [place] [address] Lymphocytes (Bld) [#/Vol] 1.3 10*3/uL Normal 1.0-3.5 [facility] Comment on above: Performed By: #### Dwayne MALAGON, 34173-4, 4-1, 2731-8, 77473-1, CBC, UPCR #### [facility] ([id number]) [address], [facility] [address] [place] [address] Lymphocytes/100 WBC (Bld) 21.2 % Normal [facility] Comment on above: Performed By: #### Dwayne MALAGON, 46332-1, 4-1, 2731-8, 33475-1, CBC, UPCR #### [facility] ([id number]) [address], [address] [place] [address] MCH (RBC) [Entitic mass] 29.3 pg Normal 27-34 [facility] Comment on above: Performed By: #### Dwayne MALAGON, 47180-3, 3084-1, 2731-8, 19749-7, CBC, UPCR #### [facility] ([id number]) [address], [address] [place] [address] MCHC (RBC) [Mass/Vol] 34.0 g/dL Normal 32-36 [facility] Comment on above: Performed By: #### Dwayne MALAGON, 97116-3, 3084-1, 2731-8, 57237-9, CBC, UPCR #### [facility] ([id number]) [address], [address] [place] [address] MCV (RBC) [Entitic vol] 86 fL Normal 80-100 [facility] Comment on above: Performed By: #### Dwayne MALAGON, 83167-5, 4-1, 2731-8, 38829-8, CBC, UPCR #### [facility] ([id number]) [address], [address] [place] [address] Monocytes (Bld) [#/Vol] 0.5 10*3/uL Normal 0-0.9 [facility] Comment on above: Performed By: #### Dwayne MALAGON, 61464-9, 3083-1, 2730-8, 48563-0, CBC, UPCR #### [facility] ([id number]) [address] [place] [address] Monocytes/100 WBC (Bld) 8.5 % Normal [facility] Comment on above: Performed By: #### Dwayne MALAGON, 03651-8, 4-1, 2731-8, 24390-9, CBC, UPCR #### [facility] ([id number]) [address] [place] [address] Neutrophils/100 WBC (Bld) 65.1 % Normal [facility] Comment on above: Performed By: #### Dwayne MALAGON, 18797-6, 4-1, 2731-8, 05474-1, CBC, UPCR #### [facility] ([id number]) [address] [place] [address] Platelet mean volume (Bld) [Entitic vol] 8.1 fL Normal 7-12 [facility] Comment on above: Performed By: #### Dwayne MALAGON, 36737-8, 3084-1, 2731-8, 98943-9, CBC, UPCR #### [facility] ([id number]) [address], [facility] [address] [place] [address] Platelets (Bld) [#/Vol] 289 10*3/uL Normal 150-450 [facility] Comment on above: Performed By: #### Dwayne MALAGON, 28859-3, 3084-1, 2731-8, 28208-7, CBC, UPCR #### [facility] ([id number]) [address], [facility] [address] [place] [address] RBC COUNT 4.44 X10E12/L Normal 4.10-5.70 [facility] Comment on above: Performed By: #### Dwayne MALAGON, 65092-5, 4-1, 2731-8, 78482-7, CBC, UPCR #### [facility] ([id number]) [address], [address] [place] [address] WBC (Bld) [#/Vol] 6.1 10*3/uL Normal 4.0-11.0 [facility] Comment on above: Performed By: #### Dwayne MALAGON, 04220-1, 3084-1, 2731-8, 94700-7, CBC, UPCR #### [facility] ([id number]) [address], [address] [place] [address] COMPREHENSIVE METABOLIC PANE Jamaal 12-01-2023 Albumin [Mass/Vol] 3.4 g/dL Normal 3.2-5.3 [facility] Comment on above: Performed By: #### Dwayne MALAGON, 37815-0, 3084-1, 2731-8, 66542-5, CBC, UPCR #### [facility] ([id number]) [address], [address] [place] [address] ALP [Catalytic activity/Vol] 100 U/L Normal 39-130 [facility] Comment on above: Performed By: #### Dwayne MALAGON, 80062-9, 3084-1, 2731-8, 67685-8, CBC, UPCR #### [facility] ([id number]) [address], [address] [place] [address] ALT [Catalytic activity/Vol] 15 U/L Normal 0-40 [facility] Comment on above: Performed By: #### Dwayne MALAGON, 28076-9, 4-1, 2731-8, 57672-5, CBC, UPCR #### [facility] ([id number]) [address], [address] [place] [address] Anion gap [Moles/Vol] 9 mmol/L Normal 5-15 [facility] Comment on above: Performed By: #### Dwayne MALAGON, 54630-0, 3083-1, 2731-8, 00265-6, CBC, UPCR #### [facility] ([id number]) [address], [address] [place] [address] AST [Catalytic activity/Vol] 17 U/L Normal 0-41 [facility] Comment on above: Performed By: #### Dwayne MALAGON, 02403-3, 3084-1, 2731-8, 41158-4, CBC, UPCR #### [facility] ([id number]) [address], [address] [place] [address] Bilirubin [Mass/Vol] 0.7 mg/dL Normal 0.3-1.2 [facility] Comment on above: Performed By: #### Dwayne MALAGON, 60590-6, 3084-1, 2731-8, 71198-3, CBC, UPCR #### [facility] ([id number]) [address], [address] [place] [address] Calcium [Mass/Vol] 8.7 mg/dL Normal 8.5-10.5 [facility] Comment on above: Performed By: #### Dwayne MALAGON, 30720-8, 3084-1, 2731-8, 99937-0, CBC, UPCR #### [facility] ([id number]) [address] [address] Chloride [Moles/Vol] 105 mmol/L Normal 98-109 [facility] Comment on above: Performed By: #### R MANAS, 63524-4, 3084-1, 2731-8, 03619-7, CBC, UPCR #### [facility] ([id number]) [address] [address] CO2 [Moles/Vol] 21 mmol/L Low 22-32 [facility] Comment on above: Performed By: #### Dwayne MALAGON, 95885-9, 3084-1, 2731-8, 93831-9, CBC, UPCR #### [facility] ([id number]) [address] [address] Creatinine [Mass/Vol] 2.37 mg/dL High 0.70-1.20 [facility] Comment on above: Result Comment: METH OD TRACEABLE TO IDMS STANDARD Performed By: #### Dwayne MALAGON, 06900-8, 3084-1, 2731-8, 41655-3, CBC, UPCR #### [facility] ([id number]) [address] [address] GFR/1.73 sq M.predicted among non-blacks MDRD (S/P/Bld) [Vol rate/Area] 29 mL/min/{1.73_m2} Low >59 [facility] Comment on above: Result Comment: Reported eGFR is based on the CKD-EPI 2020 equation that does not use a race coefficient. Performed By: #### Dwayne MALAGON, 74014-2, 3084-1, 2731-8, 99901-7, CBC, UPCR #### [facility] ([id number]) [address], [address] [place] [address] Glucose [Mass/Vol] 90 mg/dL Normal 65-99 [facility] Comment on above: Performed By: #### Dwayne MALAGON, 59204-4, 3084-1, 2731-8, 95928-3, CBC, UPCR #### [facility] ([id number]) [address], [address] [place] [address] Potassium [Moles/Vol] 4.9 mmol/L Normal 3.5-5.0 [facility] Comment on above: Performed By: #### Dwayne MALAGON, 31719-2, 4-1, 2731-8, 97759-2, CBC, UPCR #### [facility] ([id number]) [address], [address] [place] [address] Protein [Mass/Vol] 7.5 g/dL Normal 6.0-8.0 [facility] Comment on above: Performed By: #### Dwayne MALAGON, 15131-5, 4-1, 2731-8, 13670-6, CBC, UPCR #### [facility] ([id number]) [address], [address] [place] [address] Sodium [Moles/Vol] 135 mmol/L Normal 134-146 [facility] Comment on above: Performed By: #### Dwayne MALAGON, , 3083-1, 2731-8, 59914-0, CBC, UPCR #### [facility] ([id number]) [address], [address] [place] [address] Urea nitrogen [Mass/Vol] 33 mg/dL High 5-27 [facility] Comment on above: Performed By: #### Dwayne MALAGON, 22015-1, 3084-1, 2731-8, 25011-7, CBC, UPCR #### [facility] ([id number]) [address], [address] [place] [address] CRP [Mass/Vol]on 12-01-2023 C REACTIVE PROTEIN 0.6 mg/dL Normal 0.000-0.744 [facility] Comment on above: Performed By: #### R ENAL, 22345-4, 3084-1, 2731-8, 43363-5, CBC, UPCR #### [facility] ([id number]) [address] [place] [address], [address] [place] [address] Clinical Pathologyon 024 Clinical Pathology Normal [facility] Comment on above: Result Comment: [facility] [address] [place] [address] Clinical Pathology Report Patient Name:HILLARY ALEXANDERISDOB:1955 (Age: 68)Gender:MTaken:4Reported:12/06/2023hysician(s):José Cardozo [facility] ([phone])Copy To: Rec. #:[id number]: #[id number] Final Pathologic Diagnosis Possible monoclonal proteins in beta and gamma regions, 0.4 and 0.6 g/dL respectively. Recommend immunofixation for further analysis. Report Electronically Signed Out df/4Dsekou Jolley MD Interpretation performed at [facility], [address] [place] [address], License number: [id number]. Clinical History R20.0, R20.2, E87.5, I10, N18.9. SERUM PROTEIN ELECTROPHORESIS SAMPLE NO: [id number] ELECTROPHORETIC FRACTION CONCENTRATIONS (g/dL) PATIENT REFERENCE RANGE Albumin 3.8 3.4 - 5.3 Alpha-1 globulin 0.3 0.1 - 0.4 Alpha-2 globulin 0.8 0.4 - 1.1 Beta globulin 1.2 0.5 - 1.2 Gamma globulin 2.0 H 0.5 - 1.6 1 0.4 2 0.6 Total protein 8.1 6.0 - 8.0 (Electrophoretic gels and densitometric tracings on file in lab.) Specimen(s) Received Serum Protein Electrophoresis Fee Codes(s): 1; 15660-39 ESR Photometric method (Bld) [Velocity]on 12-01-2023 ESR, ERYTHROCYTE SEDIMENTATION RATE 28 mm/h High 0-20 [facility] Comment on above: Performed By: #### Dwayne MALAGON, 69363-2, 3084-1, 2731-8, 77958-5, CBC, UPCR #### [facility] ([id number]) [address], [address] [place] [address] Folate [Mass/Vol]on 12-01-19 24 FOLIC ACID 8.3 ng/mL Normal >5.8 [facility] Comment on above: Result Comment: NEW REFERENCE RANGE Performed By: #### Dwayne MALAGON, 64432-4, 3084-1, 2731-8, 64345-4, CBC, UPCR #### [facility] ([id number]) [address], [address] [place] [address] Glucose Glucometer (BldC) [M ass/Vol]on 12-01-2023 Glucose [Mass/Vol] 128 mg/dL High 65-99 [facility] Glucose [Mass/Vol] 87 mg/dL Normal 65-99 [facility] HGB A1C (GLYCO-HGB)on 2023 Glucose [Mass/Vol] 126 mg/dL Normal [facility] Comment on above: Performed By: #### Dwayne MALAGON, 44878-3, 3084-1, 2731-8, 48305-0, CBC, UPCR #### [facility] ([id number]) [address], [address] [place] [address] HbA1c (Bld) [Mass fraction] 6.0 % High 4.4-5.6 [facility] Comment on above: Result Comment: NOTE ADA Guidelines Result HgbA1c Normal : less than 5.7 % Prediabetes : 5.7 % to 6.4 % Diabetes : > 6.4 % Use with caution in patients with abnormal hemoglobin variants as the half-life of red blood cells and in vivo glycation rates are affected. Performed By: #### R ENAL, 38873-5, 3084-1, 2731-8, 24482-0, CBC, UPCR #### [facility] ([id number]) [address] [place] [address] MAGNESIUMon 12-01-2023 Magnesium [Mass/Vol] 1.7 mg/dL Low 1.8-2.6 [facility] Comment on above: Performed By: #### R ENAL, 73931-6, 3084-1, 2731-8, 55152-3, CBC, UPCR #### [facility] ([id number]) [address] [place] [address] MR BRAIN WO CONTon MR BRAIN WO CONT MR BRAIN WO CONT MR BRAIN WO CONT: 12/01/2023 8:15 AM Clinical: CVA. Tingling in both legs. EXAM: MRI brain Comparison: CT brain 11/30/2023. Procedure: Multiplanar spinecho MRI brain performed. Findings: Ventricles are normal size. There are no intracranial masses, mass-effect, or extra-axial fluid collection, or acute hemorrhage. There is a wedge-shaped signal abnormality in the left inferior cerebellum, likely an old infarct. There are small signal abnormality adjacent to the frontal horns of both lateral ventricles with involvement of the genu of the corpus callosum, probably small old lacunar infarctions. Pituitary and suprasellar regions are grossly unremarkable but detailed imaging of this area was not performed. Cranio-cervical junction is normal. There are appropriate flow voids in large cerebral vessels on T2 weighted imaging. Diffusion weighted images show no evidence for acute infarct. IMPRESSION: * No MRI evidence of acute infarction. 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 Finalized by Carlitos Grove MD on 12/01/2023 8:46 AM Normal [facility] MR CERVICAL SPINE WO CONTon 12-01-2023 MR CERVICAL SPINE WO CONT MR CERVICAL SPINE WO CONT Study: Cervical spine MRI without contrast. History: Neck pain, paresthesias.. Comparison: None. Technique: Routine multiplanar multisequence MR imaging of the cervical spine was performed without contrast. Findings: Preserved cervical vertebral body heights. Straightening typical cervical lordosis. No substantial listhesis. No suspicious bone marrow replacing process. Edema about right C3-C4 uncovertebral facets, degenerative in nature. Cord visualized brainstem through the upper thoracic spine. No gross cord compression or cord signal change. Apparent distal portion cerebellar vermian volume loss. Multilevel discogenic disease, instruments sales representative levels detailed below: C2-C3: Minimal thecal sac and neural foraminal narrowing. C3-C4:Posterior disc osteophyte complex, ligamentum flavum thickening. Moderate thecal sac narrowing. Moderate to severe right greater than left neural foraminal narrowing. Posterior facet arthropathy. C4-C5:Posterior disc osteophyte complex, moderate thecal sac narrowing. Moderate bilateral neural foraminal narrowing. C5-C6:Posterior disc osteophyte complex, axcc-se-ezgpjuqh thecal sac narrowing. Notable flattening the ventral cord [series 9 image #20]. Capacious thecal sac dorsal cord at this level. Mild/moderate right greater than left neural foraminal narrowing. C6-C7:Posterior disc-osteophyte complex. Mild thecal sac narrowing. Mild right greater than left neural foraminal narrowing. C7-T1:Minimal thecal sac and neural foraminal narrowing. Partial fatty replacement, volume loss, paraspinal musculature [particularly involving semispinalis [with relative sparing of the trapezius and levator scapula]. Impression: 1. Multilevel degenerative changes, notable moderate thecal sac narrowing at C3-C4 and C4-C5. No gross cord compression or cord signal change. 2. Neural foraminal narrowing most noted, moderate to severe, at right greater than left C3-C4. 3. Nonspecific disproportionate cerebellar vermin volume loss, findings may be seen in setting of long-standing antiepileptic medications or toxicity [such as from alcohol], please correlate clinically. 4. Additional findings detailed in the body of the report. Finalized by Kulwant Aguilera MD on 12/01/2023 12:32 PM Normal [facility] Methylmalonate [Moles/Vol]on 12-01-2023 MMA QN 0.29 umol/L Normal <=0.40 [facility] Comment on above: Result Comment: NOTE This test was developed and its performance characteristics determined by [facility] [place] ([facility]). It has not been cleared or approved by the FDA. [facility] is regulated under CLIA as qualified to perform high-complexity testing. This test is used for clinical purposes. It should not be regarded as investigational or for research. Test Performed By: [place] [address] Yacht Rigger: Prabhakar Adamson III, M.D. CLIA #[id number] Performed By: #### Dwayne MALAGON, 65669-5, 3084-1, 2731-8, 49864-4, CBC, UPCR #### [facility] ([id number]) [address] [place] [address], [address] [place] [address] Neutrophil cytoplasmic Ab IF Ql (S)on 12-01-2023 ANCA See Below Normal [facility] Comment on above: Result Comment: NOTE TEST RESULT FLAG UNIT REF.RANGE ------- C-ANCA by Immunofluorescence Negative Negative P-ANCA by Immunofluorescence Negative Negative INTERPRETATION (ANCA) See below Negative for C-ANCA and P-ANCA by indirect immunofluorescence. STAFF REVIEW (ANCA) See below No review performed. This test is used as an aid in diagnosis of patients with autoimmune vasculitides. The final interpretation should be done in conjunction with ANCA test results and clinical correlation. Test Performed By: [place] [address] Yacht Rigger: Prabhakar Adamson III, M.D. CLIA #[id number] Performed By: #### Dwayne MALAGON, 27530-4, 3084-1, 2731-8, 96039-9, CBC, UPCR #### [facility] ([id number]) [address], [address] [place] [address] Nuclear Ab IA Ql (S)on 11-30 [place] Screen w/reflex Negative Normal NEG [facility] Comment on above: Result Comment: Testing performed using multiplex flow immunoassay. Eleven different antigens associated with systemic autoimmune diseases (dsDNA,Sm,Sm/AIR BRAKE WORKER,AIR BRAKE WORKER,Chromatin, SSA,SSB,Renu-1,Scl70,Ribo P,Centromere B) are included in this screening test. Performed By: #### Dwayne MALAGON, , 3083-, 2731-8, 69693-8, CBC, UPCR #### [facility] ([id number]) [address] [place] [address], [address] [place] [address] Pyridoxine [Mass/Vol]on 11-12 VITAMIN B6 16.5 nmol/L Low 20.0-125.0 [facility] Comment on above: Result Comment: NOTE INTERPRETIVE INFORMATION: Vitamin B6 (Pyridoxal 5-Phosphate) Pyridoxal 5'-phosphate measured in a specimen collected following an 8-hour or overnight fast accurately indicates vitamin B6 nutritional status. Non-fasting specimen concentration reflects recent vitamin intake. This test was developed and its performance characteristics determined by [facility]. It has not been cleared or approved by the [place] Food and Drug Administration. This test was performed in a CLIA certified laboratory and is intended for clinical purposes. Performed By: [facility] [address] [place] [address] Yacht Rigger: Dangelo Aggarwal MD, PhD CLIA Number: [id number] Performed By: #### Dwayne MALAGON, , 3083-, 2731-8, 64537-3, CBC, UPCR #### [facility] ([id number]) [address], [address] [place] [address] Rheumatoid factor Nephelomet ry Qn (S)on 12-01-2023 RHEUMATOID FACTOR <10 Normal <20 [facility] Comment on above: Performed By: #### Dwayne MALAGON, 36969-4, 3084-1, 2731-8, 12633-5, CBC, UPCR #### [facility] ([id number]) [address], [address] [place] [address] SERUM PROTEIN ELECTROPHORESI Son 12-01-2023 Albumin [Mass/Vol] 3.8 g/dL Normal 3.4-5.3 [facility] Comment on above: Performed By: #### Dwayne MALAGON, , 3083-1, 2731-8, 94532-3, CBC, UPCR #### [facility] ([id number]) [address], [address] [place] [address] ALPHA 1 GLOBULIN 0.3 g/dL Normal 0.1-0.4 [facility] Comment on above: Performed By: #### Dwayne MALAGON, , 3083-, 2731-8, 46117-1, CBC, UPCR #### [facility] ([id number]) [address], [address] [place] [address] ALPHA 2 GLOBULIN 0.8 g/dL Normal 0.4-1.1 [facility] Comment on above: Performed By: #### Dwayne MALAGON, , 3083-1, 2731-8, 89701-9, CBC, UPCR #### [facility] ([id number]) [address], [address] [place] [address] BETA GLOBULIN 1.2 g/dL Normal 0.5-1.2 [facility] Comment on above: Performed By: #### Dwayne MALAGON, , 3083-1, 2731-8, 79117-3, CBC, UPCR #### [facility] ([id number]) [address], [address] [place] [address] GAMMA GLOBULIN 2.0 g/dL High 0.5-1.6 [facility] Comment on above: Performed By: #### Dwayne MALAGON, , 3084-1, 2731-8, 53986-8, CBC, UPCR #### [facility] ([id number]) [address] [place] [address] PROT. ELECTROPHORESIS INTERP SEE SEPARATE REPORT Normal [facility] Comment on above: Performed By: #### Dawyne MALAGON, 46405-2, 4-1, 2731-8, 14404-4, CBC, UPCR #### [facility] ([id number]) [address], [address] [address] Protein [Mass/Vol] 8.1 g/dL High 6.0-8.0 [facility] Comment on above: Performed By: #### Dwayne MALAGON, , 3083-, 2731-8, 00219-9, CBC, UPCR #### [facility] ([id number]) [address] [address] T. pallidum IgG+IgM IA Ql (S )on 12-01-2023 Syphilis Total <0.2 Normal 0.0-0.8 [facility] Comment on above: Result Comment: NON REACTIVE No serologic evidence of infection to Treponema pallidum (syphilis). Repeat testing may be considered in patients with suspected acute or primary syphilis in 2 to 4 weeks. Performed By: #### Dwayne MALAGON, , 3083-, 2731-8, 78152-1, CBC, UPCR #### [facility] ([id number]) [address] [place] [address] THYROID PROFILEon 12-01-2023 Free T4 [Mass/Vol] 0.86 ng/dL Normal 0.61-1.60 [facility] Comment on above: Performed By: #### Dwayne MALAGON, 99298-9, 4-1, 2731-8, 03428-5, CBC, UPCR #### [facility] ([id number]) [address] [address] TSH 3.89 uIU/mL Normal 0.49-4.67 [facility] Comment on above: Performed By: #### R MANAS, 29813-8, 3084-1, 2731-8, 50157-7, CBC, UPCR #### [facility] ([id number]) [address], [address] [place] [address] VITAMIN B12on 12-01-2023 Cobalamin (Vitamin B12) [Mass/Vol] 255 pg/mL Normal 180-914 [facility] Comment on above: Performed By: #### R MANAS, 44552-1, 3084-1, 2731-8, 18537-8, CBC, UPCR #### [facility] ([id number]) [address], [address] [place] [address] CBC AND AUTO DIFFon 11-30-19 ABSOLUTE BASOPHIL 0.0 X10E9/L Normal 0.0-0.2 [facility] Comment on above: Performed By: #### C BCA, PINR, 67862-5, CMP, 96578-9 #### [facility] ([id number]) [address] [place] [address] ABSOLUTE NEUTROPHIL 3.0 X10E9/L Normal 1.5-6.6 [facility] Comment on above: Performed By: #### C BCA, PINR, 62184-5, CMP, 24566-7 #### [facility] ([id number]) [address] [place] [address] Basophils/100 WBC (Bld) 0.4 % Normal [facility] Comment on above: Performed By: #### C BCA, PINR, 67333-7, CMP, 92375-0 #### [facility] ([id number]) [address] [place] [address] Eosinophils (Bld) [#/Vol] 0.3 10*3/uL Normal 0.0-0.4 [facility] Comment on above: Performed By: #### C BCA, PINR, 82886-1, CMP, 33627-5 #### [facility] ([id number]) [address] [place] [address] Eosinophils/100 WBC (Bld) 6.5 % Normal [facility] Comment on above: Performed By: #### Lissa BCA, PINR, 21022-9, CMP, 66811-8 #### [facility] ([id number]) [address] [place] [address] Erythrocyte distribution width (RBC) [Ratio] 15.5 % High 11.5-15.0 [facility] Comment on above: Performed By: #### Lissa BCA, PINR, 09019-2, CMP, 74659-5 #### [facility] ([id number]) [address] [place] [address] Hematocrit (Bld) [Volume fraction] 39.5 % Normal 39-49 [facility] Comment on above: Performed By: #### Lissa BCA, PINR, 65326-1, CMP, 85471-5 #### [facility] ([id number]) [address] [place] [address] Hemoglobin (Bld) [Mass/Vol] 13.1 g/dL Normal 13.0-17.0 [facility] Comment on above: Performed By: #### C BCA, PINR, 10590-8, CMP, 29521-2 #### [facility] ([id number]) [address] [place] [address] Lymphocytes (Bld) [#/Vol] 1.1 10*3/uL Normal 1.0-3.5 [facility] Comment on above: Performed By: #### Lissa BCA, PINR, 19601-2, CMP, 56767-3 #### [facility] ([id number]) [address] [place] [address] Lymphocytes/100 WBC (Bld) 22.3 % Normal [facility] Comment on above: Performed By: #### C BCA, PINR, 11210-2, CMP, 95841-1 #### [facility] ([id number]) [address] [place] [address] MCH (RBC) [Entitic mass] 28.5 pg Normal 27-34 [facility] Comment on above: Performed By: #### C BCA, PINR, 02216-3, CMP, 80496-8 #### [facility] ([id number]) [address] [place] [address] MCHC (RBC) [Mass/Vol] 33.1 g/dL Normal 32-36 [facility] Comment on above: Performed By: #### Lissa BCA, PINR, 66280-2, CMP, 68611-1 #### [facility] ([id number]) [address] [place] [address] MCV (RBC) [Entitic vol] 86 fL Normal 80-100 [facility] Comment on above: Performed By: #### Lissa BCA, PINR, 30209-7, CMP, 83622-9 #### [facility] ([id number]) [address] [place] [address] Monocytes (Bld) [#/Vol] 0.6 10*3/uL Normal 0-0.9 [facility] Comment on above: Performed By: #### Lissa BCA, PINR, 76214-0, CMP, 78790-7 #### [facility] ([id number]) [address] [place] [address] Monocytes/100 WBC (Bld) 11.9 % Normal [facility] Comment on above: Performed By: #### Lissa BCA, PINR, 49904-2, CMP, 05501-2 #### [facility] ([id number]) [address] [place] [address] Neutrophils/100 WBC (Bld) 58.9 % Normal [facility] Comment on above: Performed By: #### C BCA, PINR, 48279-0, CMP, 83998-8 #### [facility] ([id number]) [address] [place] [address] Platelet mean volume (Bld) [Entitic vol] 7.2 fL Normal 7-12 [facility] Comment on above: Performed By: #### C BCA, PINR, 62312-5, CMP, 83776-4 #### [facility] ([id number]) [address] [place] [address] Platelets (Bld) [#/Vol] 299 10*3/uL Normal 150-450 [facility] Comment on above: Performed By: #### C BCA, PINR, 09604-7, CMP, 56059-8 #### [facility] ([id number]) [address] [place] [address] RBC COUNT 4.59 X10E12/L Normal 4.10-5.70 [facility] Comment on above: Performed By: #### Lissa BCA, PINR, 45492-3, CMP, 38940-5 #### [facility] ([id number]) [address] [place] [address] WBC (Bld) [#/Vol] 5.0 10*3/uL Normal 4.0-11.0 [facility] Comment on above: Performed By: #### C BCA, PINR, 99868-0, CMP, 91905-8 #### [facility] ([id number]) [address] [place] [address] COMPREHENSIVE METABOLIC PANE Jamaal 11-30-2023 Albumin [Mass/Vol] 3.6 g/dL Normal 3.2-5.3 [facility] Comment on above: Performed By: #### Dwayne MALAGON, 11092-9, 3084-1, 2731-8, 09364-8, CBC, UPCR #### [facility] ([id number]) [address], [address] [place] [address] ALP [Catalytic activity/Vol] 104 U/L Normal 39-130 [facility] Comment on above: Performed By: #### Dwayne MALAGON, 30592-7, 3084-1, 2731-8, 06555-5, CBC, UPCR #### [facility] ([id number]) [address], [address] [address] [place] [address] ALT [Catalytic activity/Vol] 15 U/L Normal 0-40 [facility] Comment on above: Performed By: #### Dwayne MALAGON, 72541-6, 4-1, 2731-8, 87867-9, CBC, UPCR #### [facility] ([id number]) [address], [address] [place] [address] Anion gap [Moles/Vol] 5 mmol/L Normal 5-15 [facility] Comment on above: Performed By: #### Dwayne MALAGON, 31479-1, 3084-1, 2731-8, 14022-7, CBC, UPCR #### [facility] ([id number]) [address], [address] [place] [address] AST [Catalytic activity/Vol] 18 U/L Normal 0-41 [facility] Comment on above: Performed By: #### Dwayne MALAGON, 40064-6, 3084-1, 2731-8, 50123-7, CBC, UPCR #### [facility] ([id number]) [address], [address] [place] [address] Bilirubin [Mass/Vol] 0.5 mg/dL Normal 0.3-1.2 [facility] Comment on above: Performed By: #### Dwayne MALAGON, 19286-9, 3084-1, 2731-8, 50905-2, CBC, UPCR #### [facility] ([id number]) [address], [address] [place] [address] Calcium [Mass/Vol] 8.4 mg/dL Low 8.5-10.5 [facility] Comment on above: Performed By: #### Dwayne MALAGON, 82791-4, 4-1, 2731-8, 30804-3, CBC, UPCR #### [facility] ([id number]) [address], [address] [place] [address] Chloride [Moles/Vol] 106 mmol/L Normal 98-109 [facility] Comment on above: Performed By: #### Dwayne MALAGON, 80363-9, 3083-1, 2731-8, 38225-7, CBC, UPCR #### [facility] ([id number]) [address], [address] [place] [address] CO2 [Moles/Vol] 22 mmol/L Normal 22-32 [facility] Comment on above: Performed By: #### Dwayne MALAGON, 38904-0, 3084-1, 2731-8, 18691-0, CBC, UPCR #### [facility] ([id number]) [address], [address] [place] [address] Creatinine [Mass/Vol] 2.70 mg/dL High 0.70-1.20 [facility] Comment on above: Result Comment: METH OD TRACEABLE TO IDMS STANDARD Performed By: #### Dwayne MALAGON, 81367-1, 4-1, 2731-8, 40748-4, CBC, UPCR #### [facility] ([id number]) [address], [address] [place] [address] GFR/1.73 sq M.predicted among non-blacks MDRD (S/P/Bld) [Vol rate/Area] 25 mL/min/{1.73_m2} Low >59 [facility] Comment on above: Result Comment: Reported eGFR is based on the CKD-EPI 2020 equation that does not use a race coefficient. Performed By: #### Dwayne MALAGON, 71647-0, 3084-1, 2731-8, 89392-9, CBC, UPCR #### [facility] ([id number]) [address], [address] [place] [address] Glucose [Mass/Vol] 103 mg/dL High 65-99 [facility] Comment on above: Performed By: #### Dwayne MALAGON, 32316-7, 3083-1, 273-8, 86378-0, CBC, UPCR #### [facility] ([id number]) [address], [address] [place] [address] Potassium [Moles/Vol] 5.5 mmol/L High 3.5-5.0 [facility] Comment on above: Performed By: #### Dwayne MALAGON, 97083-7, 4-1, 2731-8, 59578-6, CBC, UPCR #### [facility] ([id number]) [address], [address] [place] [address] Protein [Mass/Vol] 7.8 g/dL Normal 6.0-8.0 [facility] Comment on above: Performed By: #### Dwayne MALAGON, 01289-2, 3083-1, 2731-8, 41519-7, CBC, UPCR #### [facility] ([id number]) [address], [address] [place] [address] Sodium [Moles/Vol] 133 mmol/L Low 134-146 [facility] Comment on above: Performed By: #### Dwayne MALAGON, 23662-0, 3084-1, 2731-8, 04696-6, CBC, UPCR #### [facility] ([id number]) [address], [address] [place] [address] Urea nitrogen [Mass/Vol] 36 mg/dL High 5-27 [facility] Comment on above: Performed By: #### R ENAL, 70300-5, 3084-1, 2731-8, 69975-0, CBC, UPCR #### [facility] ([id number]) [address] [place] [address] CT BRAIN WO CONT STROKE ALER Ton 11-30-2023 CT BRAIN WO CONT STROKE ALERT CT BRAIN WO CONT STROKE ALERT CT BRAIN WO CONT STROKE ALERT CLINICAL HISTORY: Neuro deficit, acute, stroke suspected COMPARISON: 05/01/2023 TECHNIQUE: CT head was performed without contrast using the standard protocol. Automated exposure control was utilized. FINDINGS: No acute, territorial region of diminished palmer-white differentiation. Nonacute left cerebellar infarct. No acute intracranial hemorrhage. No sign of ventricular outflow obstruction. Mild global parenchymal volume loss. Mild heterogeneity through the deep, periventricular white matter, most often seen in the setting of chronic microvascular ischemia. Intracranial vascular calcifications. Unremarkable temporal bone structures, visualized suprahyoid neck, orbits, scalp soft tissues. Mucosal thickening ethmoid air cells, right greater than left frontoethmoidal recesses. Apparent bilateral proptosis. Streak artifact from dental prostheses. IMPRESSION: 1. No acute intracranial abnormality, by CT. All CT scans at this facility use dose modulation, iterative reconstruction, and/or weight based dosing when appropriate to reduce radiation dose to as low as reasonably achievable. Finalized by Kulwant Aguilera MD on 11/30/2023 9:42 PM Normal [facility] CT CTA CAROTIDon 11-30-[address] CTA CAROTID STUDY: CT angiogram carotid artery with contrast CLINICAL HISTORY: Neuro deficit, stroke, right arm tingling, paresthesias. COMPARISON: None. TECHNIQUE: CT angiogram performed following intravenous administration of 100 mL Omnipaque 350 nonionic intravenous contrast. Coronal and sagittal and 3-D volume rendered maximum intensity projection images generated and reviewed under concurrent physician supervision. Automated exposure control utilized. The [place] Symptomatic Carotid Endarterectomy Trial (NASCET) method for calculating the degree of stenosis was utilized for stenosis measurements. FINDINGS: Conventional aortic arch anatomy. Patent brachiocephalic trunk, subclavian, vertebral, basilar arteries, common, internal carotid arteries [retropharyngeal cervical internal carotid arteries]. Straightening of the typical cervical lordosis. No aggressive osseous lesions. Moderate median atlantoaxial degenerative changes. Mild central bronchial wall thickening, which may be seen in the setting of airway infection/inflammation . Streak artifact from dental prostheses. IMPRESSION: 1. No convincing acute occlusion, dissection, or flow limiting stenosis of the major neck arterial structures. If there is suspected acute ischemia, consider MR. All CT scans at this facility use dose modulation, iterative reconstruction, and/or weight based dosing when appropriate to reduce radiation dose to as low as reasonably achievable. Finalized by Kulwant Aguilera MD on 11/30/2023 10:05 PM Normal [facility] CT CTA HEADon 11-30-[address] HEAD CT angiogram head with contrast History: Stroke, neurologic deficit. Technique: CT angiogram of the head was performed following intravenous administration of 100 cc Omnipaque 350 nonionic intravenous contrast. 3-D maximum intensity projection images generated and reviewed under concurrent physician supervision. Automated exposure control was utilized. Arterial blood flow was measured to assist the stroke clinical team in the diagnosis of large vessel occlusion in patients undergoing screening for acute ischemic stroke using Rapid AI software when clinically indicated. Findings: Head and neck dictated separately. Multifocal luminal caliber irregularity of the major intracranial vasculature, notable moderate irregular narrowing right CABIN SUPERVISOR P2 segment [right dominant posterior communicating artery with hypoplastic right P1 segment CABIN SUPERVISOR as it arises from the basilar tip]. Calcifications cavernous an paraclinoid internal carotid arteries with mild to moderate narrowing. 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 Mild irregular narrowing MCA branches without acute large vessel occlusion seen. Patent vertebral arteries, mild irregular narrowing basilar artery. Impression: No convincing acute large vessel occlusion of the major galena of Aguilera arterial structures. Multifocal luminal narrowing, most notably right P2 segment CABIN SUPERVISOR. Consider MR if there is suspected acute ischemia. 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 Consider CTA or MRA follow-up in one year. All CT scans at this facility use dose modulation, iterative reconstruction, and/or weight based dosing when appropriate to reduce radiation dose to as low as reasonably achievable. Finalized by Kulwant Aguilera MD on 11/30/2023 10:03 PM Normal [facility] Glucose Glucometer (BldC) [M ass/Vol]on 11-30-2023 Glucose [Mass/Vol] 87 mg/dL Normal 65-99 [facility] MAGNESIUMon 11-30-2023 Magnesium [Mass/Vol] 1.9 mg/dL Normal 1.8-2.6 [facility] Comment on above: Performed By: #### R MANAS, 10627-4, 4-1, 2731-8, 04641-4, CBC, UPCR #### [facility] ([id number]) [address], [address] [place] [address] PROTIME AND INRon 11-30-2023 INR Coag (PPP) [Relative time] 1.4 {INR} High 0.8-1.1 [facility] Comment on above: Performed By: #### R MANAS, , 3083-1, 2731-8, 69574-1, CBC, UPCR #### [facility] ([id number]) [address], [address] [place] [address] PT Coag (PPP) [Time] 16.6 s High 9.8-13.2 [facility] Comment on above: Result Comment: NEW REFERENCE RANGE Performed By: #### R MANAS, , 3083-1, 2731-8, 96592-1, CBC, UPCR #### [facility] ([id number]) [address], [address] [place] [address] Troponin I.cardiac High sens itivity method [Mass/Vol]on 11-30-2023 1 HOUR TROP I, HIGH SENSITIVITY 15 ng/L Normal <21 [facility] Comment on above: Performed By: #### R MANAS, 43170-3, 4-1, 2731-8, 31933-2, CBC, UPCR #### [facility] ([id number]) [address], [address] [place] [address] TROPONIN I, HIGH SENSITIVITY 12 ng/L Normal <21 [facility] Comment on above: Performed By: #### Dwayne MALAGON, 73375-4, 3084-1, 2731-8, 77051-6, CBC, UPCR #### [facility] ([id number]) [address], [address] [place] [address] URN MACROSCOPIC NURon 2023 BILIRUBIN LORA Negative Normal NEG [facility] Comment on above: Performed By: #### Dwayne MALAGON, 23132-6, 3084-1, 2731-8, 43455-8, CBC, UPCR #### [facility] ([id number]) [address], [address] [place] [address] BLOOD/HGB LORA Small Abnormal NEG [facility] Comment on above: Performed By: #### Dwayne MALAGON, 72093-4, 3084-1, 2731-8, 20672-9, CBC, UPCR #### [facility] ([id number]) [address], [address] [place] [address] GLUCOSE LORA Negative Normal NEG [facility] Comment on above: Performed By: #### Dwayne MALAGON, 44966-8, 4-1, 2731-8, 95118-6, CBC, UPCR #### [facility] ([id number]) [address], [address] [place] [address] KETONES LORA Negative Normal NEG [facility] Comment on above: Performed By: #### Dwayne MALAGON, 28841-6, 3084-1, 2731-8, 64870-2, CBC, UPCR #### [facility] ([id number]) [address], [address] [place] [address] LEUKOCYTE ESTERASE LORA Negative Normal NEG [facility] Comment on above: Performed By: #### Dwayne MALAGON, 98882-1, 3084-1, 2731-8, 71607-1, CBC, UPCR #### [facility] ([id number]) [address], [address] [place] [address] NITRITE LORA Negative Normal NEG [facility] Comment on above: Performed By: #### Dwayne MALAGON, 67682-9, 3084-1, 2731-8, 73224-7, CBC, UPCR #### [facility] ([id number]) [address], [address] [place] [address] PH LORA 7.0 Normal 5.0-8.5 [facility] Comment on above: Performed By: #### Dwayne MALAGON, 59933-4, 3084-1, 2731-8, 48692-5, CBC, UPCR #### [facility] ([id number]) [address], [address] [place] [address] PROTEIN LORA Negative Normal NEG [facility] Comment on above: Performed By: #### Dwayne MALAGON, 95030-7, 3084-1, 2731-8, 67114-7, CBC, UPCR #### [facility] ([id number]) [address], [address] [place] [address] SPECIFIC GRAVITY LORA 1.015 Normal 1.003-1.035 [facility] Comment on above: Performed By: #### Dwayne MALAGON, 74763-8, 4-1, 2731-8, 34006-8, CBC, UPCR #### [facility] ([id number]) [address], [address] [place] [address] UROBILINOGEN LORA 0.2 eu/dL Normal <1.1 [facility] Comment on above: Performed By: #### Dwayne MALAGON, 53142-8, 3084-1, 2731-8, 11173-5, CBC, UPCR #### [facility] ([id number]) [address] [place] [address] aPTT Coag (PPP) [Time]on aPTT Coag (Bld) [Time] 38 s High 26-37 [facility] Comment on above: Result Comment: NEW REFERENCE RANGE Performed By: #### Dwayne MALAGON, 57032-4, 3084-1, 2731-8, 59276-4, CBC, UPCR #### [facility] ([id number]) [address] [address] COMPLETE BLOOD COUNTon 10-26 Erythrocyte distribution width (RBC) [Ratio] 16.5 % High 11.5-15.0 [facility] Comment on above: Performed By: #### Dwayne MALAGON, 57481-3, 3084-1, 2731-8, 74947-4, CBC, UPCR #### [facility] ([id number]) [address] [address] Hematocrit (Bld) [Volume fraction] 36.6 % Low 39-49 [facility] Comment on above: Performed By: #### Dwayne MALAGON, 56776-9, 3084-1, 2731-8, 15839-0, CBC, UPCR #### [facility] ([id number]) [address] [address] Hemoglobin (Bld) [Mass/Vol] 12.0 g/dL Low 13.0-17.0 [facility] Comment on above: Performed By: #### Dwayne MALAGON, 25012-7, 3084-1, 2731-8, 25008-8, CBC, UPCR #### [facility] ([id number]) [address] [address] MCH (RBC) [Entitic mass] 28.4 pg Normal 27-34 [facility] Comment on above: Performed By: #### Dwayne MALAGON, 27906-9, 3084-1, 2731-8, 48468-6, CBC, UPCR #### [facility] ([id number]) [address], [address] [place] [address] MCHC (RBC) [Mass/Vol] 32.8 g/dL Normal 32-36 [facility] Comment on above: Performed By: #### Dwayne MALAGON, 54992-8, 3084-1, 2731-8, 10211-2, CBC, UPCR #### [facility] ([id number]) [address], [address] [place] [address] MCV (RBC) [Entitic vol] 87 fL Normal 80-100 [facility] Comment on above: Performed By: #### Dwayne MALAGON, 10222-2, 4-1, 273-8, 09998-4, CBC, UPCR #### [facility] ([id number]) [address], [facility] [address] [place] [address] Platelet mean volume (Bld) [Entitic vol] 8.4 fL Normal 7-12 [facility] Comment on above: Performed By: #### Dwayne MALAGON, 39621-0, 3083-1, 273-8, 63083-7, CBC, UPCR #### [facility] ([id number]) [address], [facility] [address] [place] [address] Platelets (Bld) [#/Vol] 260 10*3/uL Normal 150-450 [facility] Comment on above: Performed By: #### Dwayne MALAGON, 64906-8, 4-1, 2731-8, 62628-9, CBC, UPCR #### [facility] ([id number]) [address], [facility] [address] [place] [address] RBC COUNT 4.23 X10E12/L Normal 4.10-5.70 [facility] Comment on above: Performed By: #### Dwayne MALAGON, 45003-0, 4-1, 2731-8, 89532-0, CBC, UPCR #### [facility] ([id number]) [address], [address] [place] [address] WBC (Bld) [#/Vol] 4.0 10*3/uL Normal 4.0-11.0 [facility] Comment on above: Performed By: #### Dwayne MALAGON, 29021-4, 3084-1, 2731-8, 48556-4, CBC, UPCR #### [facility] ([id number]) [address] [place] [address] MAGNESIUMon 10-27-2023 Magnesium [Mass/Vol] 1.9 mg/dL Normal 1.8-2.6 [facility] Comment on above: Performed By: #### Dwayne MALAGON, 81534-9, 3083-1, 2730-8, 45105-5, CBC, UPCR #### [facility] ([id number]) [address], [address] [place] [address] PROTEIN CREAT RATIOon 2023 RANDOM URINE PROTEIN 310 mg/L High <120 [facility] Comment on above: Performed By: #### Dwayne MALAGON, 52246-4, 3083-1, 2730-8, 92352-6, CBC, UPCR #### [facility] ([id number]) [address], [address] [place] [address] U/PRO/ASTRONAUT MISSION SPECIALIST RATIO CALC 0.24 High <0.2 [facility] Comment on above: Result Comment: Neph rotic Syndrome is associated with ratios >3.5 Performed By: #### Dwayne MALAGON, 84922-5, 3084-1, 2731-8, 68404-1, CBC, UPCR #### [facility] ([id number]) [address], [address] [place] [address] URINE CREATININE,RDM 129.71 mg/dL Normal [facility] Comment on above: Performed By: #### Dawyne MALAGON, 57646-9, 3084-1, 2731-8, 92121-9, CBC, UPCR #### [facility] ([id number]) [address], [address] [place] [address] Parathyrin.intact [Mass/Vol] on 10-27-2023 PTH INTACT 334 pg/mL High 12-88 [facility] Comment on above: Performed By: #### Dwayne MALAGON, 76522-3, 3083-, 2731-8, 58351-9, CBC, UPCR #### [facility] ([id number]) [address], [address] [place] [address] RENAL PANELon 10-27-2023 Albumin [Mass/Vol] 3.5 g/dL Normal 3.2-5.3 [facility] Comment on above: Performed By: #### Dwayne MALAGON, , 3083-, 2730-8, 46147-9, CBC, UPCR #### [facility] ([id number]) [address], [address] [place] [address] Anion gap [Moles/Vol] 4 mmol/L Low 5-15 [facility] Comment on above: Performed By: #### Dwayne MALAGON, , 3083-, 2730-8, 79355-6, CBC, UPCR #### [facility] ([id number]) [address], [address] [place] [address] Calcium [Mass/Vol] 8.5 mg/dL Normal 8.5-10.5 [facility] Comment on above: Performed By: #### Dwayne MALAGON, 04503-7, 3083-, 2731-8, 84650-9, CBC, UPCR #### [facility] ([id number]) [address], [address] [place] [address] Chloride [Moles/Vol] 106 mmol/L Normal 98-109 [facility] Comment on above: Performed By: #### Dwayne MALAGON, 78580-5, 3084-1, 2731-8, 70402-4, CBC, UPCR #### [facility] ([id number]) [address] [address] [place] [address] CO2 [Moles/Vol] 29 mmol/L Normal 22-32 [facility] Comment on above: Performed By: #### Dwayne MALAGON, 63779-6, 4-1, 2731-8, 91507-9, CBC, UPCR #### [facility] ([id number]) [address] [address] [place] [address] Creatinine [Mass/Vol] 2.06 mg/dL High 0.60-1.30 [facility] Comment on above: Result Comment: METH OD TRACEABLE TO IDMS STANDARD Performed By: #### Dwayne MALAGON, , 3083-1, 2731-8, 11974-1, CBC, UPCR #### [facility] ([id number]) [address] [address] [place] [address] GFR/1.73 sq M.predicted among non-blacks MDRD (S/P/Bld) [Vol rate/Area] 35 mL/min/{1.73_m2} Low >59 [facility] Comment on above: Result Comment: Reported eGFR is based on the CKD-EPI 2020 equation that does not use a race coefficient. Performed By: #### Dwayne MALAGON, 80493-4, 3083-1, 2731-8, 38209-6, CBC, UPCR #### [facility] ([id number]) [address] [address] [place] [address] Glucose [Mass/Vol] 107 mg/dL High 65-99 [facility] Comment on above: Performed By: #### Dwayne MALAGON, 48612-4, 4-1, 2731-8, 67760-9, CBC, UPCR #### [facility] ([id number]) [address] [address] [place] [address] Phosphate [Mass/Vol] 2.7 mg/dL Normal 2.4-4.9 [facility] Comment on above: Performed By: #### Dwayne MALAGON, 11266-4, 3084-1, 2731-8, 41123-3, CBC, UPCR #### [facility] ([id number]) [address] [place] [address] Potassium [Moles/Vol] 4.5 mmol/L Normal 3.5-5.0 [facility] Comment on above: Performed By: #### Dwayne MALAGON, 07706-6, 3084-1, 2731-8, 18651-9, CBC, UPCR #### [facility] ([id number]) [address] [place] [address] Sodium [Moles/Vol] 139 mmol/L Normal 134-146 [facility] Comment on above: Performed By: #### Dwayne MALAGON, , 3083-1, 2731-8, 37937-7, CBC, UPCR #### [facility] ([id number]) [address], [address] [place] [address] Urea nitrogen [Mass/Vol] 21 mg/dL Normal 5-27 [facility] Comment on above: Performed By: #### Dwayne MALAGON, 12030-6, 4-1, 2731-8, 34871-2, CBC, UPCR #### [facility] ([id number]) [address], [address] [place] [address] URIC ACIDon 10-27-2023 Urate [Mass/Vol] 8.5 mg/dL High 2.6-7.2 [facility] Comment on above: Performed By: #### Dwayne MALAGON, 03311-3, 3084-1, 2731-8, 80909-9, CBC, UPCR #### [facility] ([id number]) [address], [address] [place] [address] URINALYSISon 10-27-2023 Bilirubin Ql (U) Negative Normal NEG [facility] BLOOD/HGB Negative Normal NEG [facility] Color (U) YELLOW Normal YELLOW [facility] Glucose Ql (U) Negative Normal NEG [facility] Ketones Ql (U) Negative Normal NEG [facility] Leukocyte esterase Test strip Ql (U) Negative Normal NEG [facility] MUCOUS PRESENT Abnormal NONE [facility] Nitrite Ql (U) Negative Normal NEG [facility] pH (U) 6.5 [pH] Normal 5.0-8.5 [facility] Protein Ql (U) 30 mg/dL Abnormal NEG [facility] R.B.CELLS <1 Normal 0-5 [facility] Specific gravity (U) [Rel density] 1.016 Normal 1.003-1.035 [facility] SQUAMOUS EPITHELIUM <1 Normal 0-5 [facility] TURBIDITY CLEAR Normal CLEAR [facility] Urobilinogen (U) [Mass/Vol] mg/dL Normal <1.1 [facility] W.B.CELLS 1 /hpf Normal 0-5 [facility] Vitamin D+Metabolites [Mass/ Vol]on 10-27-2023 VITAMIN D 25 HYD TOT 15.6 ng/mL Low 30-100 [facility] Comment on above: Result Comment: Vitamin D status 25 [place] Vitamin D Deficiency <20 ng/mL Insufficiency 20-29 ng/mL Sufficiency 30-100 ng/mL Toxicity >100 ng/mL NOTE: A pediatric reference range has not been established by the drip pumper of this kit. The [place] [employer] recommends a Vitamin D level of = or >20ng/mL in infants and children. Performed By: #### R ENAL, 36390-2, 3084-1, 2731-8, 06900-5, CBC, UPCR #### [facility] ([id number]) [address] [place] [address] US renal BIon 09-08-2023 US renal BI [facility] [place] [address] [place] [id number] Ultrasound Report Signed Patient: Arnulfo Alexander MR#: [id number] : 1955 Acct:[id number] Age/Sex: 68 / M ADM Date: 09/08/23 Loc: Room: Type: [facility] Attending Dr: Roseann Ceja MD Ordering Provider: Roseann Ceja MD Date of Service: 09/08/23 US/US renal BI: CKD (chronic kidney disease) stage 4, GFR 15-29 ml/min;Robert h Copies to: Roseann Ceja MD US renal BI 09/08/2023 12:50 PM SIGNS AND SYMPTOMS: CKD (chronic kidney disease) stage 4, GFR 15-29 ml/min;Robert h COMPARISON: None. FINDINGS: Right kidney measures 10.56 cm x 4.15 cm x 4.38 cm . There is no hydronephrosis or mass. Left kidney measures 10.2 x 6.2 x 5.3 cm . No hydronephrosis or mass. The urinary bladder is morphologically normal. No free fluid is seen in the pelvis. Before voiding, the bladder measures 7.39 cm x 4.35 cm x 4.94 cm , which corresponds to an estimated volume of 83.15 mL . US/US renal BI IMPRESSION: No hydronephrosis or mass. Impression dictated by: Javon Montenegro M.D.09/08/2023 2:16 PM Dictation Location: [place] [address] Tech: Leonela Shefali Transcribed By: [facility] 09/08/23 141 Dictated By: Javon Montenegro II, MD 09/08/231415 Signed By: 09/08/23 141 [facility] Vital Signs Date Time Vital Sign Value Performing Clinician Facility 10-19-2023 11:43-0500 Body height 172.7 cm Jeison Falk MD Work Phone: [facility] 10-19-2023 11:43-0500 Body mass index (BMI) [Ratio] 46.04 kg/m2 Jeison Falk MD Work Phone: [facility] 10-19-2023 11:43-0500 Body weight 137.35 kg [facility] 10-19-2023 11:43-0500 Diastolic blood pressure 88 mm[Hg] Jeison Falk MD Work Phone: [facility] 10-19-2023 11:43-0500 Heart rate 87 /min Jeison Falk MD [facility] 10-19-2023 11:43-0500 SaO2% (BldA) [Mass fraction] 99 % Jeison Falk MD [facility] 10-19-2023 11:43-0500 Systolic blood pressure 132 mm[Hg] Jeison Falk MD [facility] 09-04-2023 13:00-0500 Body height 172.72 cm Roseann Delfina Other [employer] Other 09-04-2023 13:00-0500 Body mass index (BMI) [Ratio] 44.52 kg/m2 Roseann Delfina Other [employer] Other 09-04-2023 13:00-0500 Body temperature 97.5 [degF] Roseann Delfina Other [employer] Other 09-04-2023 13:00-0500 Body weight 132.81 kg Roseann Delfina Other [employer] Other 09-04-2023 13:00-0500 Diastolic blood pressure 102 mm[Hg] Roseann Delfina Other [employer] Other 09-04-2023 13:00-0500 Respiratory rate 20 /min Roseann Delfina Other [employer] Other 09-04-2023 13:00-0500 SaO2% (BldA) [Mass fraction] 97 % Roseann Delfina Other [employer] Other 09-04-2023 13:00-0500 Systolic blood pressure 171 mm[Hg] Roseann Delfina Other [employer] Other Encounters Encounter Date Encounter Type Care Provider Facility Start: 02-26-2024 End: 02-26-2024 ambulatory CLAUDINE GUSMAN Not Available Start: 01-22-2024 End: 01-22-2024 ambulatory [facility] Start: 12-13-2023 End: 12-13-2023 ambulatory MAYRA YANEZ Not Available Start: 11-30-2023 End: 12-02-2023 Emergency department patient visit HARSHA PATEL [facility] Start: 11-30-2023 End: 12-01-2023 ambulatory LEONELA CARVALHO [facility] Start: 11-01-2023 Refill [facility] Start: 10-27-2023 End: 10-27-2023 ambulatory ROSEANN DELFINA [facility] Start: 10-19-2023 End: 10-19-2023 Office outpatient visit 25 minutes Jeison Falk MD Work Phone: [facility] Comment on above: Chronic systolic hea rt failure (CMS-HCC) (Primary Dx); Essential hypertension; Longstanding persistent atrial fibrillation ([facility]); NICM (nonischemic cardiomyopathy) ([facility]); ELLYN (obstructive sleep apnea); Class 3 severe obesity due to excess calories without serious comorbidity with body mass index (BMI) of 45.0 to 49.9 in adult ([facility]); Chronic venous stasis dermatitis Start: 10-19-2023 End: 10-19-2023 ambulatory JEISON FALK [facility] Start: 10-18-2023 Telephone encounter Leonela Wong CMA [facility] Start: 09-28-2023 Telephone encounter Mayra Yanez NP Work Phone: [facility] Comment on above: Discuss pt's BP meds Start: 09-08-2023 End: 09-08-2023 ambulatory Roseann Delfina Facility[facility] Start: 09-08-2023 End: 09-08-2023 ambulatory INDUSTRIAL TECHNOLOGIST-C Mayra Yanez Work Phone: [facility] Work Phone: Start: 09-08-2023 End: 09-08-2023 Patient encounter procedure INDUSTRIAL TECHNOLOGIST-C Mayra Yanez Work Phone: [facility] [place] Work Phone: Start: 09-04-2023 End: 09-04-2023 ambulatory Roseann Deflina Other [employer] Other Start: 09-04-2023 Office outpatient ne w 45 minutes Roseann Delfina [facility] Start: 07-20-2023 End: 07-20-2023 ambulatory MAYRA YANEZ Not Available Start: 06-21-2023 End: 06-21-2023 ambulatory MAYRA YANEZ Not Available Procedures Date Procedure Procedure Detail Performing Clinician Start: 10-19-2023 Follow-up visit Follow-up JEISON FALK Start: 09-08-2023 Ultrasonography of b ilateral kidneys INDUSTRIAL TECHNOLOGIST-C Mayra Yanez Work Phone: Start: 11-08-2018 Colonoscopy Mayra montano INDUSTRIAL TECHNOLOGIST Work Phone: Plan of Treatment Date Care Activity Detail Author Start: 11-08-2028 Screening for malignant neoplasm of colon [facility] Start: 10-18-2024 Adult BMI Screening Adult BMI Screening [facility] Start: 10-18-2024 Tobacco Screening Tobacco Screening [facility] Start: 07-25-2024 Tobacco Screening Tobacco Screening [facility] Start: 07-11-2024 Adult BMI Screening Adult BMI Screening [facility] Start: 12-27-2023 End: 12-27-2023 Patient encounter procedure 12/27/2023 2:30 PM EDT Office Visit [facility] [address] [facility] [place] [address] Ga Pierre MD [address] [place] [address] [facility] Start: 10-19-2023 End: 10-19-2023 Patient encounter procedure 10/19/2023 11:45 AM EST Office Visit [facility] [address] [facility] [address] [place] [address] Jeison Falk MD [address] [place] [id number] [facility] Start: 04-14-2023 COVID-19 Vaccine ( season) COVID-19 Vaccine ( season) [facility] Start: 04-14-2023 Influenza vaccination [facility] Start: 2022 Fall Risk Screening Fall Risk Screening [facility] Start: 2007 Administration of varicella zoster vaccine Zoster (Shingles) Vaccine (1 of 2) [facility] Start: 1976 DTaP,Tdap and Td Vaccines (1 - Tdap) DTaP,Tdap and Td Vaccines (1 - Tdap) [facility] Start: 1975 Adult BMI Follow Up Plan Adult BMI Follow Up Plan [facility] Start: 1969 Depression Screening Depression Screening [facility] Start: 1963 Pneumococcal Vaccine: 65+ Years (1 of 2 - PCV) Pneumococcal Vaccine: 65+ Years (1 of 2 - PCV) [facility] Start: 1955 Medicare Annual Wellness (AWV) Medicare Annual Wellness (AWV) [facility] Start: 1955 Medicare Annual Wellness Visit Medicare Annual Wellness Visit [facility] Start: 1955 Screening for malignant neoplasm of colon [facility] Immunizations Immunization Date Immunization Notes Care Provider Travis kim 01-14-2021 COVID-19, mRNA, LNP- S, PF, 100mcg/0.5mL Dose Leonela Wong INTERPRETER TRANSLATOR [facility] 12-08-2020 COVID-19, mRNA, LNP- S, PF, 100mcg/0.5mL Dose Leonela Wong [facility] Payers Date Payer Category Payer Self-pay 2022 Medicare [id number] 2022 Medicare [id number] 1955 Unknown [id number] 2.16.8 [id number] 1955 Unknown [id number] 2.16.8 [id number] 1955 Unknown [id number] 2.16.8 [id number] 1955 Unknown [id number] 2.16.8 [id number] 1955 Unknown [id number] 2.16.8 [id number] 1955 Unknown [id number] 2.16.8 [id number] 1955 Unknown [id number] 2.16.84 [id number] 1955 Unknown [id number] 2.16.84 [id number] 1955 Unknown [id number] [id number] 1955 Unknown [id number] Unknown [id number] 2.16.8 [id number] Social History Date Type Detail Facility Tobacco smoking stat us NHIS Unknown if ever smoked [employer] Other Start: 1955 Sex Assigned At Male [facility] Start: 08-24-2020 End: 07-20-2023 Sex Assigned At [facility] Start: 09-14-2022 End: 12-28-2022 Tobacco smoking status CTIS Never smoked tobacco [facility] Start: 09-14-2022 End: 12-28-2022 Tobacco use and exposure Smokeless tobacco non-user [facility] Start: 07-20-2023 End: 10-19-2023 Alcohol intake Current drinker of alcohol (finding) [facility] Start: 08-24-2020 End: 07-20-2023 Alcohol intake [facility] Start: 01-02-2023 Alcohol Comment occasional [facility] Start: 1955 Sex Assigned At Not on file [facility] Childcare Unknown [facility] Start: 07-14-2017 Alcohol Comment [facility] Start: 09-22-2022 Gender identity Identifies as male gender (finding) [facility] Start: 09-22-2022 Sexual orientation Heterosexual (finding) [facility] Goals Date Patient Goal Desired Activity /State Personal health goal Comment on above: Formatting of this n ote might be different from the original. Evaluation of progress towards goal: safe transition from hospital to home with family support. Clinical Notes 09-04-2023 to 10-19-2023 Jeison Falk MD - 10/19/2023 11:45 AM ESTTelephone Encounter - Leonela Wong CMA - 10/18/2023 9:54 AM ESTTelephone Encounter - Leonela Wong CMA - 10/18/2023 9:54 AM EST Note Date & Type Note Facility 10-19-2023 History of Presen t illness Narrative Arnulfo Alexander Date of visit: 10/19/2023 Date of : 1955 Age: 68 y.o. Patient Active Problem List Diagnosis NICM (nonischemic cardiomyopathy) ([facility]) ELLYN (obstructive sleep apnea) Longstanding persistent atrial fibrillation ([facility]) Essential hypertension Benign prostatic hyperplasia with urinary obstruction Class 3 severe obesity due to excess calories without serious comorbidity in adult ([facility]) Chronic venous stasis dermatitis Atrial fibrillation with RVR ([facility]) Acute kidney injury superimposed on CKD ([facility]) Chronic systolic heart failure ([facility]) Elevated d-dimer Allergies Allergen Reactions Hydrochlorothiazide Other reaction(s): Hypokalemia Current Outpatient Medications Medication Sig Dispense Refill albuterol (PROVENTIL HFA;VENTOLIN HFA) 90 mcg/actuation inhaler Inhale 2 puffs every 4 (four) hours as needed for wheezing. 1 Inhaler 0 apixaban (ELIQUIS) 5 mg tablet Take 1 tablet (5 mg total) by mouth in the morning and 1 tablet (5 mg total) before bedtime. 180 tablet 3 carvediloL (COREG) 25 mg tablet Take 2 tablets (50 mg total) by mouth in the morning and 2 tablets (50 mg total) before bedtime. 360 tablet 3 cloNIDine (CATAPRES) 0.3 mg tablet Take 0.2 mg by mouth nightly. dilTIAZem CD (CARDIZEM CD) 180 mg 24 hr capsule Take 1 capsule (180 mg total) by mouth in the morning. 30 capsule 10 finasteride (PROSCAR) 5 mg tablet Take 1 tablet (5 mg total) by mouth in the morning. 90 tablet 3 furosemide (LASIX) 40 mg tablet Take 1 tablet (40 mg total) by mouth daily. hydrALAZINE (APRESOLINE) 100 mg tablet Take 1 tablet (100 mg total) by mouth every 8 (eight) hours. 90 tablet 2 levalbuterol (XOPENEX) 0.31 mg/3 mL nebulizer solution Inhale 3 mL (0.31 mg total) by nebulization every 4 (four) hours as needed for wheezing for up to 24 doses. 3 mL 0 loratadine (CLARITIN) 10 mg tablet 10 mg daily for 14 days then as needed for nasal congestion drainage in sneezing 30 tablet 0 omeprazole (PriLOSEC) 20 mg capsule Take 1 capsule (20 mg total) by mouth in the morning. potassium chloride (KLOR-CON M 20) 20 MEQ CR tablet Take 1 tablet (20 mEq total) by mouth in the morning and 1 tablet (20 mEq total) before bedtime. spironolactone (ALDACTONE) 25 mg tablet Take 1 tablet (25 mg total) by mouth once daily. 30 tablet 2 tamsulosin (FLOMAX) 0.4 mg capsule Take 2 capsules (0.8 mg total) by mouth nightly. 180 capsule 3 No current facility-administered medications for this visit. Chief Complaint Patient presents with Follow-up EST PT F/U 3 MS L/S MS LABS, AT [facility] SCHED W/ PT History of Present Illness Pleasant 68-year-old gentleman with past medical history of: 1. Longstanding persistent atrial fibrillation 2. 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 Hypertension 4. ELLYN 5. Chronic compensated diastolic congestive heart failure 6. Chronic venous stasis 7. BMI 46 Patient is here for routine office visit. Currently, he denies chest pain, shortness for breath and palpitations. States that he is trying to exercise more and cut down on carbohydrates and modify his diet in general and try to lose weight. He has no anginal symptoms with activity of daily living. No worsening lower limb swelling. He used to see [facility]. At some point he was offered AV lizabeth ablation and pacemaker placement however he declined. Thought was if he develops recurrent heart failure exacerbation then will proceed down that route. Past Medical History: Diagnosis Date Acute kidney injury superimposed on CKD (CMS-HCC) 09/22/2022 Anxiety Asthma Atrial fibrillation ([facility]) Benign prostatic hyperplasia Depression DM (diabetes mellitus) ([facility]) Dyspnea on exertion GERD (gastroesophageal reflux disease) Gout HLD (hyperlipidemia) Hypertension Shortness of breath Sickle cell trait ([facility]) Sleep apnea Pt states he is supposed to wear a CPAP but does not. No data recorded No data recorded No data recorded Past Surgical History: Procedure Laterality Date COLONOSCOPY COLONOSCOPY N/A 11/08/2018 Performed by Caleb Briones MD at [facility] Coronary angiogram and left ventricular gram/pressure N/A 07/21/2017 Performed by Tin Garza MD at [facility] CARDIAC CATH LABS CYSTOSCOPY N/A 09/30/2020 Performed by Ga Pierre MD at [facility] Family History Problem Relation Age of Onset Diabetes Mother Cancer Father Social History Socioeconomic History Marital status: Spouse name: Not on file Number of children: Not on file Years of education: Not on file Highest education level: Not on file Occupational History Not on file Tobacco Use Smoking status: Never Smokeless tobacco: Never Vaping Use Vaping Use: Never used Substance and Sexual Activity Alcohol use: Yes Comment: SOCIALLY Drug use: No Sexual activity: Not Currently Other Topics Concern Caffeine Use Yes Social History Narrative Not on file Social Determinants of Health Financial Resource Strain: Not on file Food Insecurity: No Food Insecurity (10/19/2023) Hunger Screening Food Insecurity - Worry: Never True Food Insecurity - Inability: Never True Transportation Needs: Not on file Physical Activity: Not on file Stress: Not on file Social Connections: Not on file Interpersonal Safety: Not on file Housing Instability: Not on file Review of Systems Review of Systems Constitutional: Negative. HENT: Negative. Eyes: Negative. Cardiovascular: Negative. Respiratory: Negative. Endocrine: Negative. Hematologic/Lymphatic: Negative. Skin: Negative. Musculoskeletal: Positive for joint swelling and muscle weakness. Gastrointestinal: Negative. Genitourinary: Negative. Neurological: Negative. Psychiatric/Behavioral: Negative. Allergic/Immunologic: Negative. Vascular: Negative. CARDIOVASCULAR: Please review HPI. Physical Examination General appearance: Alert, oriented and cooperative. In no acute distress. Skin: Warm and dry to touch. Head: Normocephalic, without obvious abnormality, atraumatic. Ears, Nose, Mouth, Throat: Throat clear without erythema or exudate. Dentition intact. Eyes: Conjunctivae unremarkable, EOM intact. Neck: No JVD, No carotid bruit. Neck supple, trachea midline. Respiratory: Clear to auscultation bilaterally, no use of accessory muscles. Cardiovascular: Irregular rhythm with normal S1 and S2 with no murmurs. Gastrointestinal: Soft, non-tender. Bowel sounds normal. Musculoskeletal: No peripheral edema. Neurologic: Oriented to time, person and place, affect appropriate. No focal/major motor defects noted. Psychiatric: Appropriate mood, memory and judgement. VITAL SIGNS: BP 132/88 (BP Site: Left Arm, BP Postition: Sitting) Pulse 87 Ht 172.7 cm (5' 8 ) Wt (!) 137.3 kg (302 lb 12.8 oz) SpO2 99% BMI 46.04 kg/m No orders of the defined types were placed in this encounter. There are no discontinued medications. IMPRESSIONS/PLAN 1. Chronic systolic heart failure ([facility]) 2. Essential hypertension 3. Longstanding persistent atrial fibrillation ([facility]) 4. NICM (nonischemic cardiomyopathy) ([facility]) 5. ELLYN (obstructive sleep apnea) 6. Class 3 severe obesity due to excess calories without serious comorbidity with body mass index (BMI) of 45.0 to 49.9 in adult ([facility]) 7. Chronic venous stasis dermatitis 1. Longstanding persistent atrial fibrillation 2. 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 Hypertension 4. ELYLN 5. Chronic compensated diastolic congestive heart failure 6. Chronic venous stasis 7. BMI 46 Overall, stable from a cardiac standpoint. Blood pressure and heart rate are controlled. Stable chronic venous stasis swelling. He utilizes compression stockings. Continue current cardiac medications. All questions and concerns addressed to the patient's satisfaction. Follow-up in 6 months or sooner if needed. This note was created with the assistance of a speech recognition program. While intending to generate a timely document that accurately reflects the content of the visit, no guarantee can be provided that every grammatical or spelling mistake has been or will be identified or corrected. Thank you for your understanding! TODAYS ORDERS No orders of the defined types were placed in this encounter. FOLLOW UP Return in about 6 months (around 04/20/2024). PCP: Leonela Carvalho MD Referring Physician: Leonela Carvalho MD [address] [place] [address] documented in this encounter [facility]18[facility] Miscellaneous Notes Formattin g of this note might be different from the original. Left message for patient to remind them to bring their most current medication list with them to their appointment. documented in this [facility] 10-18-2023 Telephone encount er Note Left message for patient to remind them to bring their most current medication list with them to their appointment. [facility] 09-28-2023 Telephone encount er Note PC from [place] wants to speak with someone reguarding pt's BP readings and his meds. Her call back is [phone]. [facility] 09-28-2023 Miscellaneous Notes Formattin g of this note might be different from the original. PC from [place] wants to speak with someone reguarding pt's BP readings and his meds. Her call back is [phone]. documented in this encounter [facility] 09-04-2023 Evaluation note Encounter Date Diagnosis Assessment Notes Aug, CKD (chronic kidney disease) stage 4, GFR 15-29 ml/min (ICD-10 - N18.4) It was a pleasure to see Mr. Alexander in our office for an evaluation and management of the CKD. His most recent serum creatinine is 2.2 mg/dL. I ordered a UA &UPCR to evaluate for hematuria & proteinuria. I have ordered a renal ultrasound to evaluate for renal anatomy. I discussed with him the importance of good HTN control to slow down the progression of CKD. I have advised him to avoid NSAIDs. 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 Advised him to comply with the fluid restriction and medications including diuretics and clonidine. Also advised him to monitor blood pressure at home and keep the log and bring it at the time of the next visit Aug, Secondary hyperparathyroidism (ICD-10 - N25.81) Calcium is within normal limit. Will check PTH and vitamin D Aug, Dyslipidemia (ICD-10 - E78.5) Continue statins. Continue to follow with PCP for monitoring of LFTs and lipid profile Aug, BPH (benign prostatic hypertrophy) (ICD-10 - N40.0) He reported to have a feeling of incomplete emptying of bladder and nocturia. Continue current medications. [employer] Other Evaluation noteNo assessment information available [facility] Work Phone: Evaluation note* Diagnosis Chronic systolic heart failure (CMS-HCC)- Primary Chronic systolic heart failure Essential hypertension Unspecified essential hypertension Longstanding persistent atrial fibrillation (CMS-HCC) NICM (nonischemic cardiomyopathy) (CMS-HCC) ELLYN (obstructive sleep apnea) Obstructive sleep apnea (adult) (pediatric) Class 3 severe obesity due to excess calories without serious comorbidity with body mass index (BMI) of 45.0 to 49.9 in adult ([facility]) Chronic venous stasis dermatitis documented in this encounter [email or web address] Narrative - Reported* Type Description Date Medical History BENIGN ESSENTIAL HYPERTENSION Medical History ATRIAL FIBRILLATION Medical History BENIGN PROSTATIC HYPERPLASIA Medical History CARDIOMYOPATHY Medical History CHRONIC KIDNEY DISEASE STAGE 4 Medical History OBESITY Medical History OBSTRUCTIVE SLEEP APNEA Medical History SEVERE PERSISTENT ASTHMA WITH EX ACERBATION Medical History INSOMNIA Medical History HEART FAILURE [employer] Other InstructionsNot on filedocumented in this encounter [employer] SystemInstructionsNot on filedocumented in this encounter ProMXetal SystemInstructionsNot on filedocumented in this encounter [facility] Chief Complaint and Reason for Visit Chief Complaint N18.4 I12.9 N25.81 E 78.5 N40.0 Advance Directives No Advanced Directives Records Found Advance Directive Response Recorded Date/ Time Advance Directives No September 06, 2023 10:22am Latest Code Status on File Code Status Date Activated Date Inactivated Comments Full Code 09/22/2022 8:51 PM 09/25/2022 5:07 PM Code Status History Code Status Date Activated Date Inactivated Comments Full Code 07/18/2017 1:11 PM 07/19/2017 12:49 PM Summary Purpose Family History No Family History Records FoundNo Family History Records FoundNo Family History Records Found Additional Source Comments Care Teams (unrecognized sec tion and content) Team Status: Active Member Role Status Dates JM Roe Primary Care Provider Activ e Team Status: Inactive Member Role Status Dates JM Roe Primary Care Provider Activ e Start: September 08, 2023 End: September 08, 2023 Roseann Ceja MD Attending Provider Active Start : September 08, 2023 End: September 08, 2023 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 Relationship Specialty Start Date End Date Leonela Carvalho MD [address] [place] [address] PCP - General Family Medicine 01/02/23 Fiordaliza Polk MD [address] [facility] [place] [address] PCP - Adriana GARCIA 01/12/23 Mayra Yanez NP [address] [facility] [place] [address] Nurse Practitioner Family Medicine 01/02/23 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 Relationship Specialty Start Date End Date Leonela Carvalho MD [address] [facility] [place] [address] PCP - General Family Medicine 05/01/23 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 Relationship Specialty Start Date End Date Leonela Carvalho MD [address] [facility] [place] [address] PCP - General Family Medicine 05/01/23 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 Relationship Specialty Start Date End Date Leonela Carvalho MD [address] [place] [address] PCP - General Family Medicine 05/01/23 Goals (unrecognized section and content) Goals may be documented in a n alternate sectionNo Information REASON FOR VISIT (unrecogniz ed section and content) Reason Onset Date Comments Discuss pt's BP meds 09/28/2023 Reason Comments Follow-up EST PT F/U [facility] SCHED W/ PT Reason Onset Date Comments Med Refill 11/01/2023 (unrecognized sect ion and content) No Status Records FoundNo Status Records FoundNo Status Records Found INFORMATION SOURCE (unrecogn ized section and content) DATE CREATED AUTHOR 09/22/2023 [facility] DATE CREATED AUTHOR AUTHOR'S ORGANIZ ATION 01/25/2024 [facility] DATE CREATED AUTHOR AUTHOR'S ORGANIZ ATION 03/01/2024 [facility] EPIC FOR RECORDS PERTAINING TO PATIENTS WHO ARE OR HAVE BEEN ENROLLED IN A CHEMICAL DEPENDENCY/SUBSTANCEABUSE PROGRAM, SOME INFORMATION MAY BE OMITTED. This clinical summary was aggregated from multiple sources. Caution should be exercised in using it in the provision of clinical care. This summary normalizes information from multiple sources, and as a consequence, information in this document may materially change the coding, format and clinical context of patient data. In addition, data may be omitted in some cases. CLINICAL DECISIONS SHOULD BE BASED ON THE PRIMARY CLINICAL RECORDS. [facility] provides no warranty or guarantee of the accuracy or completeness of information in this document.
== END 2024-05-17 08:49 | disposition home or self-care (01) ==
LOC: RAD 08:49
PROVIDERS: Family Provider Family Medicine; Visit Provider Internal Medicine Hematology & Oncology
DX: D47.2 Monoclonal gammopathy (principal); R76.8 Other specified abnormal immunological findings in serum; M19.011 Primary osteoarthritis, right shoulder; M19.012 Primary osteoarthritis, left shoulder; M16.0 Bilateral primary osteoarthritis of hip
CPT/HCPCS: 77075

== ENCOUNTER 2024-05-23 07:55 | Outpatient (RCR) | payer MEDICARE, SELFPAY | END 2024-06-13 23:59 | disposition home or self-care (01) | LOC: HEMC 07:55 | PROVIDERS: Family Provider Family Medicine; Visit Provider Internal Medicine Hematology & Oncology | DX: D47.2 Monoclonal gammopathy (principal); R76.8 Other specified abnormal immunological findings in serum; D63.1 Anemia in chronic kidney disease; D50.9 Iron deficiency anemia, unspecified; I48.91 Unspecified atrial fibrillation; Z79.01 Long term (current) use of anticoagulants | CPT/HCPCS: G0463 ==